=== PATIENT | male | born 1955 | race Caucasian/White ===

== ENCOUNTER 2017-04-09 18:39 | Emergency (ER) | payer OTHER ==
--- NOTE | 2017-04-09 19:14 | EDPHY ---
H & P Time Seen by Provider: 04/09/17 18:53 HPI/ROS: CHIEF COMPLAINT: Dizziness, shortness of breath HISTORY OF PRESENT ILLNESS: 61-year-old male presents to the emergency department with fever for the last 2 nights and feeling short of breath. He has pain with deep breathing. He denies any other chest pain. Denies abdominal pain. No nausea or vomiting. No neck or back pain. No ill contacts. No pain in or calf swelling. The patient was in [place] 3 weeks ago and returned approximately 3 weeks ago. His is not ill. He did just recently dry back from [place] 2 days ago. REVIEW OF SYSTEMS: Constitutional: Fevers, chills, night sweats Eyes: No double or blurry vision. ENT: No sore throat. Respiratory: Shortness of breath, pleuritic chest pain Cardiac: As above Gastrointestinal: No abdominal pain, vomiting or diarrhea. Genitourinary: No dysuria. Musculoskeletal: No neck or back pain. Skin: No rashes. Neurological: No headache. Past Medical/Surgical History: Negative Social History: Smoking Status: Never smoked Physical Exam: General Appearance: Alert, no distress. Temperature 37.4, 95% on room air. Heart rate 77. Eyes: Pupils equal and round. Extraocular motions are all intact. ENT: Mouth: Mucous membranes moist. Respiratory: No wheezing, rhonchi, or rales, lungs are clear to auscultation. Cardiovascular: Regular rate and rhythm. Gastrointestinal: Abdomen is soft and nontender, no masses, no rebound or guarding, bowel sounds normal. No CVA tenderness bilaterally. Neurological: Alert and oriented x 3, cranial nerves II through XII grossly intact Skin: Warm and dry, no rashes. Musculoskeletal: Nontender to palpate along the cervical, thoracic or lumbar spine. Neck is supple. Extremities: Full range of motion and no peripheral edema. Psychiatric: Patient is oriented X 3, there is no agitation. Constitutional: Initial Vital Signs Temperature (C) 37.4 C 04/09/17 18:43 Heart Rate 77 04/09/17 18:43 Respiratory Rate 14 04/09/17 18:43 Blood Pressure 129/64 H 04/09/17 18:43 O2 Sat (%) 95 04/09/17 18:43 O2 Delivery Mode Room Air Allergies/Adverse Reactions: No Known Allergies Allergy (Unverified 04/09/17 18:44) Home Medications: Medication Instructions Recorded oxyCODONE/APAP 5/325 [Percocet 1 - 2 tab PO Q4-6PRN PRN #10 tab 04/09/17 5/325] Medical Decision Making - Diagnostics Imaging Results: Imaging Impressions Chest X-Ray 04/09/17 18:54 Impression: ? Airways disease Chest/Thorax CTA 04/09/17 20:15 Impression: No evidence for pulmonary embolic disease. Results called and discussed with BRITTANY WILSON, at 04/09/2017 20:56. General information for patients regarding this examination can be found at [email or web address]. If you have questions or comments about this report, please contact me at (hospital) or [phone] (cell). Imaging: Discussed imaging studies w/ lamination technician Radiologist, I viewed and interpreted images myself ED Course/Re-evaluation: 61-year-old male presents to the emergency department with difficulty breathing , pain in his chest and feeling feverish and chilled. Laboratory studies reveal white blood cell count of 3000. His platelets are low. No previous laboratory studies to compare this to. Chemistries are unremarkable. His D-dimer however was high at 7. Troponin was negative. Initial chest x-ray was unremarkable. CT pulmonary angiogram was ordered given the elevated D-dimer and his pleuritic chest pain, this was normal. The case was discussed with Dr. Minh Montanez, secondary supervising physician, who did not see the patient in the emergency department but agrees with treatment and plan. A viral pathogen PCR is pending on this patient. He will call for the results tomorrow. I explained to the patient that he likely has a viral illness. Understands that he needs to have his CBC repeated with his primary care provider this week. The patient was given IV Toradol and IV Valium for pain. He was feeling a bit better. Still was feeling very restless. He was given take-home pack of Percocet and a prescription to take as needed to help him sleep. He was instructed to return to the emergency department if he felt short of breath, developed worsening chest pain, fever that did not come down with ibuprofen or Tylenol, or if he felt worse in any way. Differential Diagnosis: Shortness of breath including but not limited to pulmonary infectious process, COPD, asthma, pulmonary embolus and congestive heart failure. Chest pain including but not limited to myocardial ischemia, pulmonary embolus, chest wall pain, pleural inflammation and pulmonary infectious causes. - Data Points Laboratory Results: Laboratory Results 04/09/17 19:20 04/09/17 19:20 04/09/17 04/09/17 04/09/17 19:20 19:20 19:20 WBC RBC Hgb Hct MCV MCH MCHC RDW Plt Count MPV Neut % (Auto) Lymph % (Auto) [place] % (Auto) Eos % (Auto) Baso % (Auto) Nucleat RBC Rel Count Absolute Neuts (auto) Absolute Lymphs (auto) Absolute Monos (auto) Absolute Eos (auto) Absolute Basos (auto) Absolute Nucleated RBC Immature Gran % Seg Neutrophils % Band Neutrophils % Lymphocytes % Monocytes % Eosinophils % Basophils % Immature Gran # Absolute Seg Neuts Absolute Band Neuts Absolute Lymphocytes Absolute Monocytes Absolute Eosinophils Absolute Basophils RBC/WBC/PLT Morphology Atypical Lymphocytes Platelet Estimate D-Dimer 7.07 ug/mLFEU H ug/mLFEU (0.00-0.50) Sodium 133 mEq/L L mEq/L (134-144) Potassium 4.0 mEq/L mEq/L (3.5-5.2) Chloride 99 mEq/L mEq/L (97-110) Carbon Dioxide 27 mEq/l mEq/l (22-31) Anion Gap 7 mEq/L L mEq/L (8-16) BUN 9 mg/dL mg/dL (7-23) Creatinine 0.7 mg/dL mg/dL (0.7-1.3) Estimated GFR > 60 Glucose 110 mg/dL H mg/dL (70-100) Calcium 8.6 mg/dL mg/dL (8.5-10.4) Troponin I < 0.012 ng/mL ng/mL (0-0.034) 04/09/17 19:20 WBC 3.17 10^3/uL L 10^3/uL (3.80-9.50) RBC 4.44 10^6/uL 10^6/uL (4.40-6.38) Hgb 13.8 g/dL g/dL (13.7-17.5) Hct 40.1 % % (40.0-51.0) MCV 90.3 fL fL (81.5-99.8) MCH 31.1 pg pg (27.9-34.1) MCHC 34.4 g/dL g/dL (32.4-36.7) RDW 13.2 % % (11.5-15.2) Plt Count 114 10^3/uL L 10^3/uL (150-400) MPV 10.1 fL fL (8.7-11.7) Neut % (Auto) 68.4 % % (39.3-74.2) Lymph % (Auto) 21.5 % % (15.0-45.0) [place] % (Auto) 9.8 % % (4.5-13.0) Eos % (Auto) 0.0 % L % (0.6-7.6) Baso % (Auto) 0.3 % % (0.3-1.7) Nucleat RBC Rel Count 0.0 % % (0.0-0.2) Absolute Neuts (auto) 2.17 10^3/uL 10^3/uL (1.70-6.50) Absolute Lymphs (auto) 0.68 10^3/uL L 10^3/uL (1.00-3.00) Absolute Monos (auto) 0.31 10^3/uL 10^3/uL (0.30-0.80) Absolute Eos (auto) 0.00 10^3/uL L 10^3/uL (0.03-0.40) Absolute Basos (auto) 0.01 10^3/uL L 10^3/uL (0.02-0.10) Absolute Nucleated RBC 0.00 10^3/uL 10^3/uL (0-0.01) Immature Gran % 0.0 % % (0.0-1.1) Seg Neutrophils % 37 % % Band Neutrophils % 41 % % Lymphocytes % 15 % % Monocytes % 4 % % Eosinophils % 1 % % Basophils % 2 % % Immature Gran # 0.00 10^3/uL 10^3/uL (0.00-0.10) Absolute Seg Neuts 1.17 10^/uL L 10^/uL (1.70-6.50) Absolute Band Neuts 1.30 10^3/uL H 10^3/uL (0.00-0.70) Absolute Lymphocytes 0.48 10^3/uL L 10^3/uL (1.00-3.00) Absolute Monocytes 0.13 10^3/uL L 10^3/uL (0.30-0.80) Absolute Eosinophils 0.03 10^3/uL 10^3/uL (0.03-0.40) Absolute Basophils 0.06 10^3/uL 10^3/uL (0.02-0.10) RBC/WBC/PLT Morphology NORMAL (NORMAL) Atypical Lymphocytes 1+ H Platelet Estimate DECREASED L (ADEQ) D-Dimer Sodium Potassium Chloride Carbon Dioxide Anion Gap BUN Creatinine Estimated GFR Glucose Calcium Troponin I Medications Given: Discontinued Medications Diazepam (Valium Injection) 5 mg IVP EDNOW ONE Stop: 04/09/17 21:26 Last Admin: 04/09/17 21:34 Dose: 5 mg Sodium Chloride (Ns) 1,000 mls @ 0 mls/hr IV ONCE ONE PRN Reason: Wide Open Stop: 04/09/17 22:23 Last Admin: 04/09/17 22:34 Dose: 1,000 mls Sodium Chloride (Ns) 1,000 mls @ 0 mls/hr IV ONCE ONE PRN Reason: Wide Open Stop: 04/09/17 23:29 Last Admin: 04/09/17 19:10 Dose: 1,000 mls Ketorolac Tromethamine (Toradol) 15 mg IVP EDNOW ONE Stop: 04/09/17 22:15 Last Admin: 04/09/17 22:22 Dose: 15 mg Departure - Departure Disposition: Home, Routine, Self-Care Clinical Impression: Shortness of breath Chest pain Qualifiers: Chest pain type: chest pain on breathing Qualified Code(s): R07.1 - Chest pain on breathing Fever Qualifiers: Fever type: unspecified Qualified Code(s): R50.9 - Fever, unspecified Condition: Good Instructions: Dyspnea (ED), Fever in Adults (ED), Chest Pain (ED) Additional Instructions: Percocet for severe pain to help you sleep. Take this medication with food. You should not drive while taking this medication. Return to the emergency department if you feel worsening shortness of breath, chest pain, or if you feel worse in any way. Follow up with your primary care provider this week to have your blood work rechecked, specifically your complete blood cell count. Referrals: JORY BALLESTEROS [Other] - As per Instructions Prescriptions: oxyCODONE/APAP 5/325 [Percocet 5/325] 1 - 2 tab PO Q4-6PRN PRN #10 tab PRN Reason: For Moderate To Severe Pain
[2017-04-09 19:29] LABS: ADD DIFF? NO; ADD MORPH? NO; ADD SCAN? YES; FRAGMENT RBC FLAG 0 (0-99); HEMATOCRIT 40.1 % (40.0-51.0); HEMOGLOBIN 13.8 g/dL (13.7-17.5); LEFT SHIFT FLG 0 (0-99); LIPEMIA HEMOLYSIS FLAG 90 (0-99); MEAN CELL HEMOGLOBIN 31.1 pg (27.9-34.1); MEAN CELL HEMOGLOBIN CONCENTR. 34.4 g/dL (32.4-36.7); MEAN CELL VOLUME 90.3 fL (81.5-99.8); MEAN PLATELET VOLUME 10.1 fL (8.7-11.7); PLATELET CLUMPS FLAG 0 (0-99); PLATELET COUNT 114 10^3/uL (150-400); RED BLOOD CELL COUNT 4.44 10^6/uL (4.40-6.38); RED CELL DISTRIBUTION WIDTH 13.2 % (11.5-15.2)
[2017-04-09 19:30] LABS: ATYPICAL LYMPHOCYTE FLAG 200 (0-99)
[2017-04-09 19:42] LABS: ANION GAP 7 mEq/L (8-16); CALCIUM 8.6 mg/dL (8.5-10.4); CARBON DIOXIDE 27 mEq/l (22-31); CHLORIDE 99 mEq/L (97-110); CREATININE 0.7 mg/dL (0.7-1.3); GLOMERULAR FILTRATION RATE > 60; GLUCOSE 110 mg/dL (70-100); SODIUM 133 mEq/L (134-144)
[2017-04-09 19:51] LABS: SCAN POSITIVE
[2017-04-09 19:56] LABS: PLATELET ESTIMATE DECREASED (ADEQ)
[2017-04-09] MEDS ORDERED: IOPAMIDOL (ISOVUE 370) 100 ML BTL IV ONE (20:21)
[2017-04-09] MEDS ORDERED: DIAZEPAM 10 MG/2 ML SYR IVP ONE (21:25)
--- NOTE | 2017-04-09 21:34 | CPEKG ---
Heart Rate: 70 RR Interval: 857 P-R Interval: 172 QRSD Interval: 110 QT Interval: 368 QTC Interval: 398 P [place]: 74 QRS [place]: 86 T Wave [place]: 20 EKG Severity - ABNORMAL ECG - EKG Impression: SINUS RHYTHM EKG Impression: PROBABLE LEFT ATRIAL ABNORMALITY EKG Impression: INCOMPLETE RIGHT BUNDLE BRANCH BLOCK Electronically Signed By: Mark Mckay 09-Apr-2017 22:48:16
[2017-04-09 21:35] VITALS: RESP 16
[2017-04-09] MEDS ORDERED: KETOROLAC 30 MG/1 ML SDV IVP ONE (22:14)
[2017-04-09] MEDS ORDERED: NS 1,000 ML IV ONE ×2 (22:22→23:28)
[2017-04-09 23:34] VITALS: BP 121/60; PULSE 72; TEMP 99.7; O2SAT 94
[2017-04-09] MEDS ORDERED: OXYCODONE/APAP 5/325MG PREPACK#4 BTL TAKEHOME ONE ×2 (23:46→23:52)
== END 2017-04-09 23:58 | disposition home or self-care (01) ==
DX: R06.02 Shortness of breath (principal); R07.1 Chest pain on breathing; R50.9 Fever, unspecified
CPT/HCPCS: 96374; J1885; Q9967

== ENCOUNTER 2017-04-11 11:06 | Emergency (ER) | payer OTHER ==
[2017-04-11 12:24] VITALS: RESP 14
[2017-04-11] MEDS ORDERED: NS 1,000 ML IV ONE ×2 (12:53)
[2017-04-11] MEDS ORDERED: ONDANSETRON 4 MG/2 ML VIAL IVP ONE (12:53)
[2017-04-11] MEDS ORDERED: HYDROmorphONE/DILAUDID 1 MG/ML SYR IVP ONE (12:53)
[2017-04-11] MEDS ORDERED: KETOROLAC 30 MG/1 ML SDV IVP ONE (12:54)
--- NOTE | 2017-04-11 12:57 | EDPHY ---
H & P Time Seen by Provider: 04/11/17 12:37 HPI/ROS: CHIEF COMPLAINT: Can't sleep, and back pain HISTORY OF PRESENT ILLNESS: Patient was seen here 2 days ago with symptoms including pain on deep inspiration and feeling mildly short of breath. He had an extensive evaluation including CT angiography of his chest which was negative for pulmonary embolism or pulmonary infection. He was diagnosed with a viral infection and sent home. His white blood cell count was 3000 and his platelet count 114 which were both slightly low. Today presents with low back pain and a sensation that he just can't get comfortable. He is not sleeping for the last couple of days. The back pain is located in his lower lumbar area but isn't particularly positional. Not associated with weakness or numbness of legs. No trauma. No incontinence. REVIEW OF SYSTEMS: Eye: no change in vision ENT: no sore throat Cardiac: no chest pain or syncope Pulmonary: no cough or SOB Abdomen: No diarrhea or abdominal pain, did have vomiting yesterday. Decreased oral intake. Musculoskeletal: HPI, diffuse myalgias in addition. Skin: no rash Neuro: no headache, no weakness or numbness in extremities Constitutional: no fever : no urinary symptoms A comprehensive 10 point review of systems is otherwise negative aside from elements mentioned in the history of present illness. PAST MEDICAL HISTORY: negative Social history: No IV drugs, no recent travel or developing country. Recent travel to [place]. Dental work 2 weeks ago General Appearance: Alert and conversant, cooperative. Eyes: No scleral icterus. ENT, Mouth: Normal mucous membranes. Normal tympanic membranes. No facial swelling. Neck is supple. Respiratory: Normal respiratory effort, breath sounds equal, lungs are clear to auscultation. Cardiovascular: Regular rate and rhythm. No murmur. Gastrointestinal: Abdomen is soft and non tender. No McBurney's tenderness and negative Berg sign. Neurological: Alert and oriented x3. Normally conversant. Face symmetric, normal movement and sensation in all extremities. Toes downgoing bilaterally and no clonus. Negative straight leg raising bilaterally. Skin: Warm and dry, no rashes. No lesions seen on palms hands or fingernails. Musculoskeletal: No peripheral edema and no joint swelling. No midline spinal tenderness. Psychiatric: Not agitated. Emergency Department course/MDM: Vital signs reviewed and are unremarkable. I considered other causes such as including but not limited to diskitis, epidural abscess, pyelonephritis, influenza, malaria, endocarditis but I think these are all not likely. Plan for symptomatic treatment and recheck of labs including CBC. 1355: Repeat evaluation, labs discussed. CBC reviewed. White blood cell count stable, platelets slightly down from previous, hematocrit 36 today compared to 40 from previous. Think the most reasonable thing still is to treat the patient's symptoms, let him go home, and he has primary care follow- up later this week. Vital signs noted, afebrile and not tachycardic, normotensive. Smoking Status: Never smoked Constitutional: Initial Vital Signs Temperature (C) 37.3 C 04/11/17 11:09 Heart Rate 69 04/11/17 11:09 Respiratory Rate 18 04/11/17 11:09 Blood Pressure 123/60 H 04/11/17 11:09 O2 Sat (%) 95 04/11/17 11:09 O2 Delivery Mode Room Air Allergies/Adverse Reactions: No Known Allergies Allergy (Verified 04/11/17 11:08) Home Medications: Medication Instructions Recorded Ondansetron Odt [Zofran Odt] 4 mg PO Q4PRN #10 tab 04/11/17 Triazolam [Halcion 0.25MG (*)] 0.25 mg PO HS #5 tab 04/11/17 oxyCODONE/APAP 5/325 [Percocet] 1 - 2 tab PO Q4-6PRN PRN #11 tab 04/11/17 Medical Decision Making - Data Points Laboratory Results: Laboratory Results 04/11/17 12:05 04/11/17 12:05 Medications Given: Discontinued Medications Hydromorphone HCl (Dilaudid) 0.5 mg IVP EDNOW ONE Stop: 04/11/17 12:54 Last Admin: 04/11/17 13:27 Dose: 0.5 mg Sodium Chloride (Ns) 1,000 mls @ 0 mls/hr IV ONCE ONE; Wide Open PRN Reason: Protocol Stop: 04/11/17 12:54 Last Admin: 04/11/17 13:27 Dose: 1,000 mls Sodium Chloride (Ns) 1,000 mls @ 0 mls/hr IV ONCE ONE; Wide Open PRN Reason: Protocol Stop: 04/11/17 12:54 Last Admin: 04/11/17 13:28 Dose: 1,000 mls Ketorolac Tromethamine (Toradol) 15 mg IVP EDNOW ONE Stop: 04/11/17 12:55 Last Admin: 04/11/17 13:27 Dose: 15 mg Ondansetron HCl (Zofran) 4 mg IVP EDNOW ONE Stop: 04/11/17 12:54 Last Admin: 04/11/17 13:27 Dose: 4 mg Departure - Departure Disposition: Home, Routine, Self-Care Clinical Impression: Back pain Condition: Good Instructions: Acute Low Back Pain (ED) Additional Instructions: Do not mix the sleeping medication and Percocet. Do not take a sleeping pill within 6 hours of having taken 1 of your pain medications. Oral ibuprofen 600 mg every 6 hours for the next 3 days. Please return for repeat evaluation if your symptoms worsen. Referrals: JORY BALLESTEROS [Other] - As per Instructions Prescriptions: Ondansetron Odt [Zofran Odt] 4 mg PO Q4PRN #10 tab oxyCODONE/APAP 5/325 [Percocet] 1 - 2 tab PO Q4-6PRN PRN #11 tab PRN Reason: Pain Triazolam [Halcion 0.25MG (*)] 0.25 mg PO HS #5 tab
[2017-04-11 12:59] LABS: % IMMATURE GRANULYOCYTES 0.3 % (0.0-1.1); ABSOLUTE IMMATURE GRANULOCYTES 0.01 10^3/uL (0.00-0.10); ADD DIFF? NO; ADD MORPH? NO; ADD SCAN? YES; FRAGMENT RBC FLAG 0 (0-99); HEMATOCRIT 36.5 % (40.0-51.0); HEMOGLOBIN 12.9 g/dL (13.7-17.5); LEFT SHIFT FLG 10 (0-99); LIPEMIA HEMOLYSIS FLAG 90 (0-99); MEAN CELL HEMOGLOBIN 31.4 pg (27.9-34.1); MEAN CELL HEMOGLOBIN CONCENTR. 35.3 g/dL (32.4-36.7); MEAN CELL VOLUME 88.8 fL (81.5-99.8); MEAN PLATELET VOLUME 10.9 fL (8.7-11.7); PLATELET CLUMPS FLAG 10 (0-99); PLATELET COUNT 96 10^3/uL (150-400); RED BLOOD CELL COUNT 4.11 10^6/uL (4.40-6.38); RED CELL DISTRIBUTION WIDTH 13.2 % (11.5-15.2)
[2017-04-11 13:05] LABS: ATYPICAL LYMPHOCYTE FLAG 150 (0-99)
[2017-04-11 13:07] LABS: ANION GAP 8 mEq/L (8-16); CALCIUM 8.7 mg/dL (8.5-10.4); CARBON DIOXIDE 24 mEq/l (22-31); CHLORIDE 98 mEq/L (97-110); CREATININE 0.5 mg/dL (0.7-1.3); GLOMERULAR FILTRATION RATE > 60; GLUCOSE 118 mg/dL (70-100); POTASSIUM 3.7 mEq/L (3.5-5.2); SODIUM 130 mEq/L (134-144)
[2017-04-11 13:25] LABS: SCAN NEGATIVE
[2017-04-11 14:04] VITALS: BP 126/73; PULSE 66; TEMP 98.4; O2SAT 95
== END 2017-04-11 14:16 | disposition home or self-care (01) ==
DX: M54.5 Low back pain (principal)
CPT/HCPCS: 96374; J1170; J1885; J2405

== ENCOUNTER 2017-04-14 06:21 | Inpatient (IN) | payer OTHER ==
[2017-04-14] MEDS ORDERED: LORazepam 2 MG/ML INJ IVP ONE (06:48)
[2017-04-14] MEDS ORDERED: KETOROLAC 15 MG/1 ML SDV IVP ONE (06:50)
[2017-04-14] MEDS ORDERED: LORazepam 2 MG/ML INJ ONE (06:50)
--- NOTE | 2017-04-14 06:53 | EDPHY ---
H & P Stated Complaint: so much pain unable to sleep Source: Patient, Old records Exam Limitations: No limitations - Medical/Surgical History Hx Asthma: No Hx Chronic Respiratory Disease: No Hx Diabetes: No Hx Cardiac Disease: No Hx Renal Disease: No Hx Cirrhosis: No Hx Alcoholism: No Hx HIV/AIDS: No Hx Splenectomy or Spleen Trauma: No Other PMH: PMHx: none reported - Social History Smoking Status: Never smoked <Itzel Mckeon - Last Filed: 04/14/17 07:16> <Minh Montanez - Last Filed: 04/14/17 09:34> Time Seen by Provider: 04/14/17 06:28 HPI/ROS: HPI The patient presents with back pain, fever, new paresthesias. This is the patient's 3rd ER visit in the last 1 week. He had symptoms which began about a week ago with night sweats and generalized malaise. He had chest pain and myalgias which brought him to the ER for his 1st visit several days ago. He was evaluated for PE and MD with an unremarkable workup and discharged home. He re-presented 2 days ago with continued myalgias. His labs were relatively normal and he was discharged home. It was suspected that he had a viral syndrome. He was discharged on pain medication, however this is not helping his pain. He has not been able to sleep for the last 5 nights because when he lays down he has severe neck and lower back pain. This is achy in nature. This is associated with paresthesias of his upper extremities. He is only able to lay down for about 15 minutes at a time. Over the last 1 day he has noticed swelling of his upper extremities as well as a rash throughout his arms and chest. He has had daily fevers as high as 101 with his last fever being this morning. He has had diminished appetite. He has no known sick contacts. REVIEW OF SYSTEMS Constitutional: Positive for fever and chills Eyes: No discharge. ENT: No sore throat. Cardiovascular: No chest pain, no palpitations. Respiratory: No cough, no shortness of breath. Gastrointestinal: No abdominal pain, no vomiting. Genitourinary: No hematuria. Musculoskeletal: Positive for back pain. Skin: No rashes. Neurological: No headache. PMHx: Healthy Soc Hx: Recent airplane travel to [place] and [place] PHYSICAL General Appearance: Alert, no distress Eyes: Pupils equal and round no pallor or injection ENT, Mouth: Mucous membranes dry Back: Tenderness throughout mid lumbar spine and paraspinal regions bilaterally Respiratory: There are no retractions, lungs are clear to auscultation Cardiovascular: Regular rate and rhythm Gastrointestinal: Abdomen is soft and non-tender, no masses, bowel sounds normal Neurological: A&O, moves all extremities Skin: Warm and dry, maculopapular rash throughout upper extremities and trunk Musculoskeletal: Neck is supple, with tenderness of his left cervical paraspinals Extremities: symmetrical, full range of motion Psychiatric: Patient is oriented X 3, there is no agitation (Itzel Mckeon) Constitutional: Initial Vital Signs Temperature (C) 37.3 C 04/14/17 06:22 Heart Rate 74 04/14/17 06:22 Respiratory Rate 16 04/14/17 06:22 Blood Pressure 111/54 L 04/14/17 06:22 O2 Sat (%) 94 04/14/17 06:22 O2 Delivery Mode Room Air Allergies/Adverse Reactions: No Known Allergies Allergy (Verified 04/11/17 11:08) Home Medications: Medication Instructions Recorded Ondansetron Odt [Zofran Odt] 4 mg PO Q4PRN #10 tab 04/11/17 Triazolam [Halcion 0.25MG (*)] 0.25 mg PO HS #5 tab 04/11/17 oxyCODONE/APAP 5/325 [Percocet] 1 - 2 tab PO Q4-6PRN PRN #11 tab 04/11/17 Medical Decision Making <Itzel Mckeon - Last Filed: 04/14/17 07:16> - Diagnostics Imaging: Discussed imaging studies w/ scallop raker Radiologist, I viewed and interpreted images myself <Minh Montanez - Last Filed: 04/14/17 09:34> - Diagnostics Imaging Results: Imaging Impressions Abdomen Ultrasound 04/14/17 08:21 Impression: 1. Mild hepatomegaly, but normal echotexture without mass. 2. Sliver of free fluid adjacent to gallbladder, with normal sonographic appearance of the gallbladder. Findings and recommendations discussed with Minh Montanez MD at 0930 hour, 04/14/2017. Final report concurs with initial preliminary interpretation. Differential Diagnosis: This is a 61-year-old male who is healthy who presents with about 1 week of myalgias, fever, now with cervical and lumbar back pain causing insomnia and associated with upper extremity paresthesias and rash. He is being treated symptomatically for presumed viral infection. Differential diagnosis includes viral infection with myalgias, epidural abscess , myelitis, myositis, rhabdomyolysis, autoimmune disease. Plan for symptomatic relief with Ativan as Valium has helped him before, Toradol , IV fluids. I will check basic labs including a CK and will add on blood cultures. I will obtain an MRI of his spine given his back pain and this fever. At approximately 7:00 a.m., the case will be signed out to the oncoming provider Dr. Montanez. (Itzel Mckeon) Other Provider: 0700: I assumed care of this patient at shift change from Dr. Mckeon. This is a normally healthy 61 y/o male who arrives to the ED for the 3rd time this week complaining of myalgias and diffuse back pain. Dr. Mckeon ordered labs and full spinal MRI. We discussed the case and decided the patient will likely require admission due to continued uncontrolled symptoms. 0810: Labs show hyponatremia, hypochloremia, elevated LFTs, and elevated neutrophils, and anemia. Will add gallbladder US. Patient's MRI will take 3 hours, so we will admit him now and he can have imaging performed as an inpatient. 0840: Spoke with hospitalist service. Dr. Anderson accepts admission to step-down unit. 0932: US shows free fluid in abdomen. (Minh Montanez) - Data Points Laboratory Results: Laboratory Results 04/14/17 07:00 04/14/17 07:00 04/14/17 04/14/17 04/14/17 08:10 07:00 07:00 WBC 5.83 10^3/uL 10^3/uL (3.80-9.50) RBC 3.97 10^6/uL L 10^6/uL (4.40-6.38) Hgb 12.0 g/dL L g/dL (13.7-17.5) Hct 34.6 % L % (40.0-51.0) MCV 87.2 fL fL (81.5-99.8) MCH 30.2 pg pg (27.9-34.1) MCHC 34.7 g/dL g/dL (32.4-36.7) RDW 13.2 % % (11.5-15.2) Plt Count 147 10^3/uL L D 10^3/uL (150-400) MPV 9.8 fL fL (8.7-11.7) Neut % (Auto) 80.4 % H % (39.3-74.2) Lymph % (Auto) 12.3 % L % (15.0-45.0) [place] % (Auto) 6.7 % % (4.5-13.0) Eos % (Auto) 0.0 % L % (0.6-7.6) Baso % (Auto) 0.3 % % (0.3-1.7) Nucleat RBC Rel Count 0.0 % % (0.0-0.2) Absolute Neuts (auto) 4.68 10^3/uL 10^3/uL (1.70-6.50) Absolute Lymphs (auto) 0.72 10^3/uL L 10^3/uL (1.00-3.00) Absolute Monos (auto) 0.39 10^3/uL 10^3/uL (0.30-0.80) Absolute Eos (auto) 0.00 10^3/uL L 10^3/uL (0.03-0.40) Absolute Basos (auto) 0.02 10^3/uL 10^3/uL (0.02-0.10) Absolute Nucleated RBC 0.00 10^3/uL 10^3/uL (0-0.01) Immature Gran % 0.3 % % (0.0-1.1) Immature Gran # 0.02 10^3/uL 10^3/uL (0.00-0.10) ESR 9 MM/HR MM/HR (0-20) Sodium 127 mEq/L L mEq/L (134-144) Potassium 3.4 mEq/L L mEq/L (3.5-5.2) Chloride 94 mEq/L L mEq/L (97-110) Carbon Dioxide 23 mEq/l mEq/l (22-31) Anion Gap 10 mEq/L mEq/L (8-16) BUN 12 mg/dL mg/dL (7-23) Creatinine 0.6 mg/dL L mg/dL (0.7-1.3) Estimated GFR > 60 Glucose 108 mg/dL H mg/dL (70-100) Calcium 8.3 mg/dL L mg/dL (8.5-10.4) Total Bilirubin 0.9 mg/dL mg/dL (0.1-1.4) AST 101 IU/L H IU/L (17-59) ALT 136 IU/L H IU/L (21-72) Alkaline Phosphatase 168 IU/L H IU/L (38-126) Creatine Kinase 73 IU/L IU/L (0-224) Total Protein 5.6 g/dL L g/dL (6.3-8.2) Albumin 3.4 g/dL L g/dL (3.5-5.0) Urine Color YELLOW Urine Appearance HAZY Urine pH 6.0 (5.0-7.5) Ur Specific [place] 1.015 (1.002-1.030) Urine Protein 1+ H (NEGATIVE) Urine Ketones 1+ H (NEGATIVE) Urine Blood NEGATIVE (NEGATIVE) Urine Nitrate NEGATIVE (NEGATIVE) Urine Bilirubin NEGATIVE (NEGATIVE) Urine Urobilinogen NEGATIVE EU EU (0.2-1.0) Ur Leukocyte Esterase NEGATIVE (NEGATIVE) Urine RBC 3-5 /hpf H /hpf (0-3) Urine WBC 3-5 /hpf H /hpf (0-3) Ur Epithelial Cells NONE SEEN /lpf /lpf (NONE-1+) Urine Mucus TRACE /lpf /lpf (NONE-1+) Urine Glucose NEGATIVE (NEGATIVE) Medications Given: Discontinued Medications Ketorolac Tromethamine (Toradol) 15 mg IVP ONCE ONE Stop: 04/14/17 06:51 Last Admin: 04/14/17 07:10 Dose: 15 mg Lorazepam (Ativan Injection) 1 mg IVP EDNOW ONE Stop: 04/14/17 06:49 Last Admin: 04/14/17 07:07 Dose: 1 mg Departure <Itzel Mckeon - Last Filed: 04/14/17 07:16> <Minh Montanez - Last Filed: 04/14/17 09:34> - Departure Disposition: [facility] Clinical Impression: Myalgia, Hyponatremia, Hypochloremia, Elevated liver enzymes, Rash Anemia Qualifiers: Anemia type: other cause Other causes of anemia: other cause, not classified Qualified Code(s): D64.89 - Other specified anemias Condition: Fair Report Scribed for: Minh Montanez Report Scribed by: Sharri Phillips Date of Report: 04/14/17 Time of Report: 08:23 <Minh Montanez - Last Filed: 04/14/17 09:34>
[2017-04-14 07:09] LABS: % IMMATURE GRANULYOCYTES 0.3 % (0.0-1.1); ABSOLUTE IMMATURE GRANULOCYTES 0.02 10^3/uL (0.00-0.10); ADD DIFF? NO; ADD MORPH? NO; ADD SCAN? NO; ATYPICAL LYMPHOCYTE FLAG 30 (0-99); FRAGMENT RBC FLAG 0 (0-99); HEMATOCRIT 34.6 % (40.0-51.0); LEFT SHIFT FLG 0 (0-99); LIPEMIA HEMOLYSIS FLAG 90 (0-99); MEAN CELL HEMOGLOBIN 30.2 pg (27.9-34.1); MEAN CELL HEMOGLOBIN CONCENTR. 34.7 g/dL (32.4-36.7); MEAN CELL VOLUME 87.2 fL (81.5-99.8); MEAN PLATELET VOLUME 9.8 fL (8.7-11.7); PLATELET CLUMPS FLAG 0 (0-99); PLATELET COUNT 147 10^3/uL (150-400); RED BLOOD CELL COUNT 3.97 10^6/uL (4.40-6.38); RED CELL DISTRIBUTION WIDTH 13.2 % (11.5-15.2)
[2017-04-14 07:20] LABS: ALANINE AMINOTRANSFERASE 136 IU/L (21-72); ALBUMIN 3.4 g/dL (3.5-5.0); ALKALINE PHOSPHATASE 168 IU/L (38-126); ANION GAP 10 mEq/L (8-16); ASPARTATE AMINOTRANSFERASE 101 IU/L (17-59); BILIRUBIN,TOTAL 0.9 mg/dL (0.1-1.4); CALCIUM 8.3 mg/dL (8.5-10.4); CARBON DIOXIDE 23 mEq/l (22-31); CHLORIDE 94 mEq/L (97-110); CREATININE 0.6 mg/dL (0.7-1.3); GLOMERULAR FILTRATION RATE > 60; GLUCOSE 108 mg/dL (70-100); POTASSIUM 3.4 mEq/L (3.5-5.2); SODIUM 127 mEq/L (134-144); TOTAL PROTEIN 5.6 g/dL (6.3-8.2)
[2017-04-14 07:29] LABS: SEDIMENTATION RATE 9 MM/HR (0-20)
[2017-04-14 08:19] LABS: COLOR YELLOW; LEUKOCYTE ESTERASE,URINE NEGATIVE (NEGATIVE); NITRITE,URINE NEGATIVE (NEGATIVE)
[2017-04-14 08:25] LABS: MUCUS TRACE /lpf (NONE-1+)
[2017-04-14] MEDS ORDERED: LORazepam 2 MG/ML INJ IVP PRN (12:34)
[2017-04-14] MEDS ORDERED: ZOLPIDEM TARTRATE 5 MG TAB PO PRN (13:25)
[2017-04-14] MEDS ORDERED: ONDANSETRON DISINTEGRATING 4 MG TAB PO PRN (13:25)
--- NOTE | 2017-04-14 15:31 | GHP ---
[f rep st] HISTORY AND PHYSICAL DATE OF ADMISSION: 04/14/2017 The patient is a pleasant 61-year-old gentleman with minimal past medical history who has presented to the emergency department the last 3 nights with back pain. He does have a history of what sounds like cervical lumbar spine disease, but he has had worsening back pain. He has not had any bowel o r bladder incontinence. He has never had back surgery. He does not have focal lower extremity weak ness, although he describes his legs bilaterally as slightly weak. He recently traveled to [place], it sounds like a trip where they traveled and slept in some places with uncomfortable beds and he escamilla d some uncomfortable nights sleeping on the floor. He does not use injection drugs. He has had wha t sounds like a couple episodes of drenching night sweats in the last week precluding him from sleep but it is not clear that he has had documented fevers. He has been here on the 4th, the 6th, and n ow and he has had low-grade temps of 37.9, 37.6. While here he has had no true fevers. His workup thus far included a chest x-ray on the which was unremarkable. He was diagnosed with a viral syndrome. He had a CTA of his chest done on the concerning for pulmonary embolism show ing evidence of pulmonary embolic disease, a mild T8 compression. Today, he was seen and he had an abdominal ultrasound in response to some abnormal LFTs, which was pretty unremarkable. He drinks it sounds like daily alcohol but not to excess. He still has his gallbladder. He has not been taking a lot of Tylenol, though he is prescribed Percocet, and in discussing with him, it sounds as there was some confusion as to whether Tylenol and Aleve were the same thing. He has had no rash on his s kin, no pain elsewhere. He has never had a history of elevated liver tests in the past. He present ed to the emergency department today just in misery with pain, unable to sleep. He also had some pa resthesias in his upper extremities and some neck pain. He has not had focal weakness in his arms. It sounds like he documents fevers of 101 at home. REVIEW OF SYSTEMS: Complete 10-point review of systems conducted and negative except as noted in th e HPI. PAST MEDICAL HISTORY: It sounds like degenerative disease of the spine. ALLERGIES: No known drug allergies. HOME MEDICATIONS: Percocet, Halcion, ondansetron. SOCIAL HISTORY: He lives in [place]. 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 Alcohol a s in the HPI. No tobacco. No injection drugs. FAMILY HISTORY: Notable for hypertension. PHYSICAL EXAM: VITAL SIGNS: Temp, presenting vitals this morning, temp 37.3, blood pressure 111/54 , pulse 74, breathing 16 times a minute, 94% on room air. GENERAL: No acute distress. HEENT: Scl erae anicteric. Oropharynx clear. Mucous membranes are moist. NECK: Supple without lymphadenopat hy or JVD. LUNGS: Clear to auscultation bilaterally. HEART: S1, S2. Not tachycardic. ABDOMEN: Soft, nontender, nondistended. LOWER EXTREMITIES: Without edema. Calves nontender. SKIN: Witho ut rash. SPINE: His lumbar spine, he has no pain over palpation. There is no obvious muscle spasm . NEURO: Shows upper extremity and lower extremity strength 5/5 bilaterally with intact sensation 5/5 bilaterally. LABS: Sodium 127, potassium 3.4, chloride 94, bicarb 23, BUN 12, creatinine 0.6, glucose 108, AST 1 01, ALT 136, alkaline phosphatase 168, no priors for comparison. Albumin low at 3.4. Troponin less than 0.012 a couple days ago. His D-dimer a couple days ago was 7. His white count 5.8, hematocri t 34, platelets are 147,000. UA is unremarkable. Abdominal ultrasound shows mild hepatomegaly with normal texture without mass. Sliver free fluid adjacent to the gallbladder with normal sonographic appearance of the gallbladder. I have discussed the case with Dr. Itzel Mckeon. ASSESSMENT AND PLAN: This is a 61-year-old gentleman who presents with low back pain. 1. Low back pain. The story is somewhat suggestive of an epidural abscess with the fevers and the pain. He has a relatively unremarkable exam and looks pretty well, not tachycardic and no fevers. Blood cultures have been drawn. He has an MRI of his cervical, thoracic and lumbar spine ordered. I will follow up on these results. There is no focal neurologic deficit, so I do not suspect signif icant herniated disk or other neuro surgical emergency. I will wait to see if there is evidence of paraspinal fluid collection. 2. Pain. We will give him IV Dilaudid, some IV Ativan now, particularly prior to his MRI. 3. Hyponatremia. I suspect this is secondary to pain and possibly poor p.o. intake. We will follo w. 4. Elevated liver function tests, uncertain etiology. It does not fit a pattern for alcoholic. Se nt a Tylenol level that is pending at this time. We will follow these while here. 5. Prophylaxis. Pharmacologic prophylaxis indicated if in the hospital longer than 24 hours. I escamilla ve written him for enoxaparin to start tomorrow. Obviously this can be held if there is concern if he has a surgical process on this MRI. 6. Alcohol use. It is not clear to me if this is playing a role on his current presentation. 7. Disposition: Inpatient status. /[id number]/MODL
[2017-04-14] MEDS ORDERED: GADOBUTROL 10 ML VIAL IVP ONE (16:43)
[2017-04-14] MEDS: oxyCODONE IR 5 MG TAB PO PRN ×2 (16:56→23:32)
[2017-04-14] MEDS: HYDROmorphONE/DILAUDID 1 MG/ML SYR IVP PRN (18:00)
[2017-04-14] MEDS: TRIAZOLAM 0.25 MG TAB PO SCH (20:57)
[2017-04-15] MEDS ORDERED: PROTOCOL POTASSIUM 1 DOSE MISC PRN (00:57)
[2017-04-15] MEDS ORDERED: PROTOCOL MAGNESIUM 1 DOSE IV PRN (00:57)
[2017-04-15] MEDS ORDERED: NS 1,000 ML IV SCH (01:00)
[2017-04-15] MEDS: oxyCODONE IR 5 MG TAB PO PRN ×3 (03:31→20:54)
[2017-04-15 04:12] LABS: % IMMATURE GRANULYOCYTES 0.5 % (0.0-1.1); ABSOLUTE IMMATURE GRANULOCYTES 0.03 10^3/uL (0.00-0.10); ADD DIFF? NO; ADD MORPH? NO; ADD SCAN? NO; ATYPICAL LYMPHOCYTE FLAG 30 (0-99); FRAGMENT RBC FLAG 0 (0-99); HEMATOCRIT 34.6 % (40.0-51.0); HEMOGLOBIN 12.1 g/dL (13.7-17.5); LEFT SHIFT FLG 0 (0-99); LIPEMIA HEMOLYSIS FLAG 90 (0-99); MEAN CELL HEMOGLOBIN 30.3 pg (27.9-34.1); MEAN CELL VOLUME 86.7 fL (81.5-99.8); PLATELET CLUMPS FLAG 0 (0-99); PLATELET COUNT 189 10^3/uL (150-400); RED BLOOD CELL COUNT 3.99 10^6/uL (4.40-6.38); RED CELL DISTRIBUTION WIDTH 13.2 % (11.5-15.2)
[2017-04-15 04:33] LABS: ALANINE AMINOTRANSFERASE 117 IU/L (21-72); ALKALINE PHOSPHATASE 148 IU/L (38-126); ANION GAP 10 mEq/L (8-16); ASPARTATE AMINOTRANSFERASE 66 IU/L (17-59); BILIRUBIN,TOTAL 0.6 mg/dL (0.1-1.4); CALCIUM 8.1 mg/dL (8.5-10.4); CARBON DIOXIDE 22 mEq/l (22-31); CHLORIDE 94 mEq/L (97-110); CREATININE 0.6 mg/dL (0.7-1.3); GLOMERULAR FILTRATION RATE > 60; GLUCOSE 89 mg/dL (70-100); POTASSIUM 3.8 mEq/L (3.5-5.2); SODIUM 126 mEq/L (134-144); TOTAL PROTEIN 5.3 g/dL (6.3-8.2)
[2017-04-15 04:48] LABS: INR 1.12 (0.83-1.16); PROTIME(PATIENT) 14.3 SEC (12.0-15.0)
[2017-04-15 04:49] LABS: APTT 30.2 SEC (23.0-38.0)
--- NOTE | 2017-04-15 06:04 | CPEKG ---
Heart Rate: 72 RR Interval: 833 QRSD Interval: 108 QT Interval: 376 QTC Interval: 412 QRS [place]: 61 T Wave [place]: -56 EKG Severity - ABNORMAL ECG - EKG Impression: ACCELERATED JUNCTIONAL RHYTHM EKG Impression: IRBBB AND LPFB EKG Impression: ST DEPRESSION, CONSIDER ISCHEMIA, INF LEADS Electronically Signed By: Itzel Mckeon 15-Apr-2017 07:08:58
[2017-04-15] MEDS ORDERED: POTASSIUM CL 10 MEQ TAB PO ONE ×2 (09:42→21:19)
[2017-04-15] MEDS: ENOXAPARIN 40 MG/0.4 ML SYR SC SCH (09:46)
[2017-04-15] MEDS ORDERED: IMMUNE GLOBULIN 20 GM/200 ML VIAL IV SCH ×3 (11:15→13:30)
--- NOTE | 2017-04-15 11:22 | HOSPPROG ---
Hospitalist Progress Note Assessment/Plan: 61-year-old healthy man is admitted with fever, rash and increasing back pain. Overnight he has developed numbness in his hands and legs as well as a little bit the lung numbness over his chest area. He was admitted with severe back pain for pain control. Evaluation has included MRIs of his cervical, thoracic and lumbar spine all of which were fairly unremarkable. # Viral syndrome with fever rash in back pain. Having some intermittent neurologic complaints, I did discuss this case with Dr. Torres who saw him in consultation is concern for possible Guillain-Haines syndrome. Get an LP and depending on results could consider IVIG. * Id consult, discussed with Dr. Blas, check viral serologies. * LP * continue supportive care * possible IVIG depending on LP results # Junctional rhythm: Patient verify junctional rhythm overnight. Asymptomatic. Currently in sinus rhythm will continue to monitor. Subjective: having some numbness on his hands and legs. Still with back pain but better controlled with pain medication. Objective: Vital Signs Temp Pulse Resp BP Pulse Ox 37.1 C 73 17 117/84 H 90 L 04/15/17 08:00 04/15/17 08:00 04/15/17 08:00 04/15/17 08:00 04/15/17 08:30 Laboratory Results 04/15/17 03:30 04/15/17 03:30 04/14/17 04/15/17 04/16/17 05:59 05:59 05:59 Intake Total 1180 Balance 1180 PT 14.3 SEC (12.0-15.0) 04/15/17 03:30 INR 1.12 (0.83-1.16) 04/15/17 03:30 - Physical Exam Constitutional: uncomfortable Eyes: PERRL, anicteric sclera, EOMI Ears, Nose, Mouth, Throat: moist mucous membranes Cardiovascular: regular rate and rhythym, no murmur, rub, or gallop Respiratory: no respiratory distress, no rales or rhonchi, clear to auscultation Gastrointestinal: normoactive bowel sounds, soft, non-tender abdomen, no palpable masses Genitourinary: no bladder fullness Skin: warm, normal color Musculoskeletal: no joint effusions, generalized weakness, No asymmetric calves Neurologic: AAOx3, No sensation intact bilaterally Psychiatric: interacting appropriately, not anxious, not encephalopathic ICD10 Worksheet Patient Problems: Problems Problem Status Onset Myalgia Acute Hyponatremia Acute Anemia Acute Hypochloremia Acute Elevated liver enzymes Acute Rash Acute
--- NOTE | 2017-04-15 11:42 | GCON ---
[f rep st] CONSULTATION REFERRING PHYSICIAN: Ynes Kraft MD HISTORY: The patient is a 61-year-old gentleman, who I am asked to see in neurologic consultation r egarding prominent pain with paresthesias in the extremities and some weakness. History is obtained from review of the medical records, discussion with his providers, and direct history from the apurva ent and his significant other, who has witnessed all of these activities over the last week. Sympto ms began about 8 days ago, when he was not feeling very well on a trip. About a month ago or so, cindy nair were in [place], but did not have any illness. He was in a hotel, and said he started having chil ls during the night. He was having sweats and that is very unusual for him. After coming home, he was not feeling well, and within the next few days, he went to the emergency room for a visit, this was on April 09. At that time, he was suspected to probably have a viral syndrome. He came back to the emergency room on April 11, and at that point was reporting pain on deep inspiration, and feeli ng mildly short of breath. He had already had workup with CT angiogram of the chest, it was negativ e. His low back pain was causing prominent discomfort and he was having some paresthesias beginning to develop. It was hard to correlate with any particular position, but he simply could not get sonido y comfortable. He was afebrile in the emergency department at that point. Labs were not particular ly specific. He was sent home with pain medication to include Percocet and antinausea medicine with Zofran. He said that he simply has continued to have a decline in his comfort and more back pain, with pares thesias developing initially in the right hand, and then spreading within a day or so to affect both hands, and now the feet are affected, and he is feeling some discoordination, and a little unsteady , and definitely a little weak in general. He came back to the emergency department early yesterday morning, and had more workup with entire spinal cord exam showing no severe abnormalities to explai n symptoms. The most recent labs are showing mild anemia, normal white count, normal platelets, sed imentation rate of 9. He said he has noticed a little bit of a rash on the skin. D-dimer mildly el evated. Normal INR. Chemistries have shown some elevated liver enzymes, which are coming down sinc e yesterday morning, when they were about 2 times to 3 times normal, and now are about 1-1/2 times n ormal or so. Lipase of 730. He does say that he probably drinks alcohol 5 days a week, with 3 beer s, or sometimes a few more per day, and sometimes some other alcohol. Urinalysis showed a few white cells, but very nonspecific. Tox screen showed normal Tylenol level. PAST MEDICAL HISTORY: Has been relatively unremarkable, except for known degenerative spine disease and intermittent back pain. ALLERGIES: No allergies. SOCIAL HISTORY: He lives in [place]. 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 The alcohol use is as outlined above. He is a nonsmoker. No drug abuse. FAMILY HISTORY: Hypertension. MEDICATIONS: When he came to the hospital, he was taking some Halcion, ondansetron and Percocet. D uring this hospitalization, he is on Lovenox for DVT prophylaxis. He is getting pain medication as needed, and that is including some Dilaudid. PHYSICAL EXAMINATION: VITAL SIGNS: The patient had a T-max at midnight of 38.9, temperature curren tly 37.1 Celsius, blood pressure 117/84, pulse of 73, respirations 17. GENERAL: He is well develop ed, in no acute distress. EYES: Clear. NECK: Supple with no bruits or masses. CARDIAC: Regular rate and rhythm. No murmur. NEURO: He is lethargic and falling asleep, sometimes as I am speaking to him, consistent with purely being exhausted. The pupils are 3 mm and reactive. Extraocular mov ements are intact. Normal facial sensation and strength. Motor exam, normal muscle bulk and tone, but he has mild proximal muscle weakness in the upper and lower extremities, in the 4/5 range. Refl exes are 1+ in the upper extremities and absent in the lower extremities, except for slight reflex o f the right ankle jerk. No Babinski signs. The sensation is fairly well preserved for temperature and light touch, despite having the paresthesias. I did not have him try to walk, but apparently ea rlier he did walk and nearly collapsed from feeling very weak and somewhat lightheaded. 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 Guillain-Saint Paul syndrome can certainly have very promine nt back pain, as he does, and areflexia in the lower extremities, certainly points toward this condi tion, as the most likely explanation. We talked about this and evaluate, obtaining spinal fluid, wh ich we will do to look for any classic pattern of the condition or anything unexpected. Typically, we would see a high-protein with relatively normal white blood cell count. If there are elevated wh ite blood cells, that can occur early that would not exclude the diagnosis, but might prompt us to d o more extensive diagnostic studies. The likelihood of a West Nile virus is relatively unlikely, bu t reasonable to consider. He already had flu testing, which was negative. Depending on his clinica l course, I am still thinking we would probably treat him with IVIG, if the spinal fluid is not clas sic for that condition, just because he is still showing some progression. In any case, we did talk about that and the plan, typically for 5 consecutive days of treatment. Depending on his clinical course, some of this might be able to be arranged for outpatient home care infusions. Total unit time today, 60 minutes, with greater than 50% of the time counseling and coordination of care. I have reviewed the case with Dr. Alan Blas as well, from infectious disease. We will continue to monitor his progress and follow up on CSF results. /[id number]/MODL
--- NOTE | 2017-04-15 12:49 | GCON ---
[f rep st] CONSULTATION INFECTIOUS DISEASE CONSULTATION DATE OF CONSULTATION: 04/15/[address] Ynes Kraft. REASON FOR CONSULTATION: Probable viral syndrome with neurologic symptoms. HISTORY OF PRESENT ILLNESS: The patient is a 61-year-old male without a significant past medical hi story, who I am asked to see in consultation for probable viral syndrome with neurologic symptoms. The patient recently traveled in [place] for approximately 6 weeks, where he was in [place], [facility], [place], [place], and [place]. He does not note any unusual occurrences while traveling. He returned home approximately 1 month ago. Approximately 1 week prior to admission, he developed t he onset of night sweats. This was followed by fever with chills and low back pain. He also has escamilla d more chronic neck pain, which was worsened as well. He did not note any headache or visual change s. The patient was seen in the emergency department on 04/09/2017 for the above complaints. He did have associated chest discomfort at that time, and a CT angiogram was performed which did not show evidence of pulmonary embolus. No pneumonia was noted either. The patient was treated supportively for probable viral syndrome. His CBC on that day did show a mild leukopenia and thrombocytopenia, with the associated presence of atypical lymphocytes. The patient returned home and had difficulty sleeping due to his low back pain. He subsequently re-presented to the ER on 04/11/2017 for repeat evaluation. He was not at that time noted to have weakness or numbness in his extremities. Repeat CBC showed persistent mild leukopenia and thrombocytopenia. He was discharged with supportive thera py, including pain medications, anti-emetics, and medical therapy for insomnia, with plans for outpa tient followup. Ultimately, his symptoms persisted, including fever and chills, and he started to h ave a sense of numbness and tingling in his upper extremities and chest. This was not associated wi th a sense of overall weakness. He has noted some cognitive slowing. No bizarre behaviors or seizu res noted by his family. He continued to have difficulty with sleep and low back pain, and ultimate ly was admitted yesterday for further evaluation. Lab assessment showed improvement in his white bl ood cell count and platelet count. He was noted to have transaminitis. Abdominal ultrasound was pe rformed and showed mild hepatomegaly. He underwent an MRI of the cervical, thoracic, and lumbar spi ne with no evidence of epidural abscess, diskitis, or osteomyelitis. Mild disk bulge at T3-4 was no joseline. The patient has had a respiratory viral panel performed on 04/09/2017 which showed no organism s. He does not note any tick exposure when in [place] or locally. He has been walking in [place] around [facility], but did not note any mosquito bites. He lives on approximately 1 acre that a buts some hobby-type farms. He occasionally pets the horses across the fence. There is a pet cat a nd dog at home. The cat is an indoor/outdoor cat which has not been noted to have fleas or ticks. It has not brought home any animals such as rabbits or squirrels. He has been doing some yard work, but no mowing. He also has noted a diffuse, slightly macular rash over the last few days. No bat exposure. No ill contacts. The patient does not recall any raw meat or unpasteurized dairy pr oducts while in [place]. He did eat escargot. Given the above findings, I am now asked to assist in his ongoing management. PAST MEDICAL HISTORY: Unremarkable. PAST SURGICAL HISTORY: Appendectomy. MEDICATIONS: Prior to admission: Pain control and anti-emetics. Current medications include Lovenox 40 mg subcu daily, Ativan as needed, and Halcion 0.25 mg p.o. at bedtime. ALLERGIES: No known drug allergies. SOCIAL HISTORY: The patient does not smoke. He drinks 4 beers 5 times per week. Marijuana use. N o other drug use. Travel history as outlined above. FAMILY HISTORY: Hypertension. REVIEW OF SYSTEMS: Outside that noted in the HPI, the remainder of a 10-system review is unremarkab le. PHYSICAL EXAMINATION: VITAL SIGNS: Temperature 38.9, temperature current 37.1, heart rate 73, resp iratory rate 17, blood pressure 117/84, oxygen saturation 98% on room air. GENERAL: The patient is a periodically somnolent, but easily arousable. He appears nontoxic. HEENT: There is no scleral icterus, conjunctival injection, or conjunctival petechiae. Oropharynx is clear, without lesions. Dentition is in good repair. There is no thrush. There is no tenderness over the frontal, maxillar y, or mastoid area. NECK: Supple, without lymphadenopathy or palpable thyromegaly. Subtle meningi smus may be present. CHEST: Clear to auscultation bilaterally, without adventitious sounds. Respi ratory effort is normal. CARDIOVASCULAR: Regular rate and rhythm, without murmurs, gallops, or rub s. ABDOMEN: Soft, nontender, nondistended. There is no palpable organomegaly. Bowel sounds are p resent. MUSCULOSKELETAL: There is no cyanosis, clubbing, or edema. SKIN: There is a resolving fa int macular rash over the upper extremities primarily. There are no stigmata of endocarditis. The skin is warm and dry to touch. LYMPHATICS: There are no cervical or supraclavicular nodes. NEUROL OGIC: The patient is a periodically somnolent, but easily arousable and able to interact normally. Cranial nerves 2-12 are grossly intact. Slight dysmetria with [id number] testing. Decreased s ensation subjectively in the upper extremities. Motor strength is 5/5. Prior examinations have not ed no reflexes in the lower extremities. LABORATORY DATA: White blood cell count 6.4, hematocrit 34.6, platelets 189, neutrophils 74%. Seru m creatinine 0.6, AST 66, ALT 117, alkaline phosphatase 148, bilirubin 0.6, lipase 730. CK 73. INR 1.1. Urinalysis with 3-5 red blood cells and 3-5 white blood cells, with 1+ protein and 1+ ketones . Blood cultures x2 sets are negative. Respiratory pathogen panel is negative. MRI as outlined ab ove. IMPRESSION: Probable viral syndrome, with neurologic complaints suggestive of possible Guillain-Bar re syndrome: Initial leukopenia and atypical lymphocytosis consistent with viral etiology. Conside rations would include West Nile virus, Narciso-Caceres virus, cytomegalovirus, enterovirus, or less lik jody VZV/HSV (rash not consistent with either). Influenza is also a consideration, but the respirato ry pathogen PCR makes this less likely and no ongoing respiratory symptoms. Tick-borne illnesses ar e of consideration, although I suspect these are unlikely based on description of travel while in [facility] and should not be associated with atypical lymphocytosis. Similarly, suspect zoonotic illness such as tularemia or Q fever would be remote considerations, but again I feel those will be less lik jody. RECOMMENDATIONS: 1. EBV, CMV, HIV, and West Nile virus antibodies. 2. West Nile virus PCR in serum. 3. Agree with plans for lumbar puncture, with further diagnostic testing based on CSF findings (con siderations would be for enterovirus PCR, VZV PCR, HSV PCR, and West Nile virus antibody/PCR). 4. Observe off antibiotics. 5. Continued supportive care. 6. Above findings and plan were discussed with the patient, family, Dr. Kraft, and Dr. Torres. Thank you for this consultation. We will continue to follow the patient with you. /[id number]/MODL
[2017-04-15] MEDS ORDERED: IMMUNE GLOBULIN 10 GM/100 ML VIAL IV SCH (13:30)
[2017-04-15] MEDS: SODIUM CHLORIDE 1,000 MG TAB PO SCH ×2 (13:36→18:38)
[2017-04-15] MEDS ORDERED: LIDOCAINE 1% 300 MG/30 ML SDV ONE (15:46)
[2017-04-15 18:31] LABS: PROTEIN, CSF 100 mg/dL (12-60)
[2017-04-15 18:50] LABS: CSF APPEARANCE CLEAR (CLEAR); CSF COLOR COLORLESS (COLORLESS); CSF SUPERNATANT COLORLESS (COLORLESS); WBC, CSF 33 /mm3 (0-5)
[2017-04-15 19:12] LABS: POTASSIUM 3.9 mEq/L (3.5-5.2)
[2017-04-15] MEDS: TRIAZOLAM 0.25 MG TAB PO SCH (20:54)
--- NOTE | 2017-04-15 20:57 | NEUROPROG ---
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 I spoke with the patient and his nurse and will initiate IVIg 30gms daily for 5 consecutive days. Objective: Vital Signs Temp Pulse Resp BP Pulse Ox 37.6 C 76 12 107/59 L 96 04/15/17 15:40 04/15/17 15:40 04/15/17 15:40 04/15/17 15:40 04/15/17 15:40 Microbiology 04/15/17 18:06 Gram Stain - Final Cerebral Spinal Fluid Laboratory Results 04/15/17 03:30 04/15/17 18:40 04/14/17 04/15/17 04/16/17 05:59 05:59 05:59 Intake Total 1180 2582 Balance 1180 2582 PT 14.3 SEC (12.0-15.0) 04/15/17 03:30 INR 1.12 (0.83-1.16) 04/15/17 03:30 Allergies/Adverse Reactions: No Known Allergies Allergy (Verified 04/11/17 11:08)
[2017-04-15] MEDS: HYDROmorphONE/DILAUDID 1 MG/ML SYR IVP PRN (23:03)
[2017-04-16] MEDS ORDERED: ACETAMINOPHEN 325 MG TAB PO PRN (01:08)
[2017-04-16] MEDS: ONDANSETRON 4 MG/2 ML VIAL IVP PRN (03:22)
[2017-04-16 05:09] LABS: % IMMATURE GRANULYOCYTES 0.5 % (0.0-1.1); ABSOLUTE IMMATURE GRANULOCYTES 0.03 10^3/uL (0.00-0.10); ADD DIFF? NO; ADD MORPH? NO; ADD SCAN? NO; ATYPICAL LYMPHOCYTE FLAG 50 (0-99); FRAGMENT RBC FLAG 0 (0-99); HEMOGLOBIN 13.6 g/dL (13.7-17.5); LEFT SHIFT FLG 0 (0-99); LIPEMIA HEMOLYSIS FLAG 90 (0-99); MEAN CELL HEMOGLOBIN 30.2 pg (27.9-34.1); MEAN CELL HEMOGLOBIN CONCENTR. 34.9 g/dL (32.4-36.7); MEAN CELL VOLUME 86.7 fL (81.5-99.8); MEAN PLATELET VOLUME 9.7 fL (8.7-11.7); PLATELET CLUMPS FLAG 10 (0-99); PLATELET COUNT 283 10^3/uL (150-400); RED CELL DISTRIBUTION WIDTH 13.2 % (11.5-15.2)
[2017-04-16 05:23] LABS: ALANINE AMINOTRANSFERASE 108 IU/L (21-72); ALBUMIN 3.3 g/dL (3.5-5.0); ALKALINE PHOSPHATASE 142 IU/L (38-126); ANION GAP 8 mEq/L (8-16); ASPARTATE AMINOTRANSFERASE 50 IU/L (17-59); BILIRUBIN,TOTAL 0.8 mg/dL (0.1-1.4); CALCIUM 8.6 mg/dL (8.5-10.4); CARBON DIOXIDE 23 mEq/l (22-31); CHLORIDE 91 mEq/L (97-110); CREATININE 0.7 mg/dL (0.7-1.3); GLOMERULAR FILTRATION RATE > 60; GLUCOSE 101 mg/dL (70-100); POTASSIUM 4.2 mEq/L (3.5-5.2); SODIUM 122 mEq/L (134-144); TOTAL PROTEIN 6.3 g/dL (6.3-8.2)
[2017-04-16] MEDS: oxyCODONE IR 5 MG TAB PO PRN ×2 (07:21→17:26)
[2017-04-16] MEDS: ENOXAPARIN 40 MG/0.4 ML SYR SC SCH (10:02)
[2017-04-16] MEDS: SODIUM CHLORIDE 1,000 MG TAB PO SCH ×3 (10:02→18:24)
[2017-04-16] MEDS ORDERED: LACTULOSE 20 GM/30 ML UDCUP PO PRN (10:47)
[2017-04-16] MEDS ORDERED: POLYETHYLENE GLYCOL 3350 17 GM PKT PO PRN (10:47)
[2017-04-16] MEDS ORDERED: MAGNESIUM HYDROXIDE 30 ML UDCUP PO PRN (10:47)
[2017-04-16] MEDS ORDERED: BISACODYL 10 MG SUPP PR PRN (10:47)
--- NOTE | 2017-04-16 11:15 | NEUROPROG ---
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 I spoke with the patient and his nurse and will initiate IVIg 30gms daily for 5 consecutive days. 04/16/17 Today's total unit time was 25 minutes with greater than 50% of the time counseling coordination of care and review of the treatment plan. 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 He has received 1 dose of IVIG and will need for more consecutive days of treatment. He is stable clinically, although he has developed the autonomic complication of atrial fibrillation which can certainly occur with this syndrome and will also require close monitoring. I believe he should stay in the hospital for the entire treatment course. My partner will be taking over the neurologic monitoring starting tomorrow, Dr. Navarro. Subjective: The patient tells me that overnight he has been about the same and certainly not any better. He feels unsteady when he is walking and very uncomfortable trying to maintain good balance. The strength has not significantly changed but remains still little bit weak in all of the extremities with distal paresthesias. He developed asymptomatic atrial fibrillation in the last 12 hours and still has atrial fibrillation on monitor. He has not found definite exacerbating or alleviating factors for the symptoms. Objective: Vital Signs Temp Pulse Resp BP Pulse Ox 36.4 C 110 H 14 100/69 97 04/16/17 08:00 04/16/17 08:00 04/16/17 08:00 04/16/17 08:00 04/16/17 08:00 Microbiology 04/15/17 18:06 Gram Stain - Final Cerebral Spinal Fluid Laboratory Results 04/16/17 04:40 04/16/17 04:40 04/15/17 04/16/17 04/17/17 05:59 05:59 05:59 Intake Total 1180 3182 Output Total 150 Balance 1180 3032 PT 14.3 SEC (12.0-15.0) 04/15/17 03:30 INR 1.12 (0.83-1.16) 04/15/17 03:30 He is awake and alert and attentive and able to follow commands without difficulty. Extraocular movements are intact. Normal facial sensation and movement. Motor examination continues to reveal some mild proximal muscle weakness in the upper extremities and minimal in the lower extremities but reflexes are absent in the legs and trace in the upper extremities. Sensation is still preserved for temperature and light touch despite the paresthesias. The spinal fluid is as noted below Laboratory Tests 04/15/17 18:06 CSF WBC 33 H CSF RBC 0 CSF Neutrophils % 10 H CSF Lymphocytes % 42 CSF Monos/Macrophage % 48 H CSF Glucose 45 L CSF Total Protein 100 H Allergies/Adverse Reactions: No Known Allergies Allergy (Verified 04/11/17 11:08)
--- NOTE | 2017-04-16 12:16 | HOSPPROG ---
Hospitalist Progress Note Assessment/Plan: 61-year-old healthy man is admitted with fever, rash and increasing back pain. Overnight he has developed numbness in his hands and legs as well as a little bit the lung numbness over his chest area. He was admitted with severe back pain for pain control. Evaluation has included MRIs of his cervical, thoracic and lumbar spine all of which were fairly unremarkable. 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 Torres * Appreciate excellent ID consult. # Junctional rhythm: Patient verify junctional rhythm overnight. Asymptomatic. Currently in sinus rhythm will continue to monitor. # AFib with rapid ventricular response, patient asymptomatic. Echocardiogram done, discussed with Cardiology. Given his previous junctional rhythm and I am hesitant to treat with nathalia blocking agents, will follow heart rate and symptoms for now * Will need ongoing cardiac monitoring given that Guillain-[place] syndrome can affect the heart * Add prophylactic Lovenox Subjective: Still with back pain, no new complaints. Objective: Vital Signs Temp Pulse Resp BP Pulse Ox 36.8 C 100 21 H 113/65 98 04/16/17 12:00 04/16/17 12:00 04/16/17 12:00 04/16/17 12:00 04/16/17 12:00 Microbiology 04/15/17 18:06 Gram Stain - Final Cerebral Spinal Fluid Laboratory Results 04/16/17 04:40 04/16/17 04:40 04/15/17 04/16/17 04/17/17 05:59 05:59 05:59 Intake Total 1180 3182 Output Total 150 Balance 1180 3032 PT 14.3 SEC (12.0-15.0) 04/15/17 03:30 INR 1.12 (0.83-1.16) 04/15/17 03:30 - Physical Exam Constitutional: appears nourished, uncomfortable Eyes: PERRL, anicteric sclera, EOMI Ears, Nose, Mouth, Throat: moist mucous membranes Cardiovascular: no murmur, rub, or gallop, irregularly irregular, No edema Respiratory: no respiratory distress, no rales or rhonchi, clear to auscultation Gastrointestinal: normoactive bowel sounds, soft, non-tender abdomen, no palpable masses Genitourinary: no bladder fullness, No blood in urethra Skin: warm, normal color Musculoskeletal: generalized weakness Neurologic: AAOx3, sensation intact bilaterally, No facial droop Psychiatric: interacting appropriately, not anxious, not encephalopathic ICD10 Worksheet Patient Problems: Problems Problem Status Onset Myalgia Acute Hyponatremia Acute Anemia Acute Hypochloremia Acute Elevated liver enzymes Acute Rash Acute
--- NOTE | 2017-04-16 12:28 | PDCARCONS ---
Cardiology Consult Reason for Consult: Atrial fibrillation with periodic bouts of junctional rhythm Chief Complaint: Weakness Requesting Physician: Hospitalist History of Present Illness: Patient is a 61 y/o male with unremarkable past cardiovascular history (no CAD, HTN, HLP, or DM), who presented to [facility] with complaints of back pains and fevers. Recent travel to [place] without issues on trip, but upon return home, fevers, back pains, and diaphoresis were noted. Admission to [facility] with neurology and ID consulted. At present, concerns about Guillain [place] Syndrome. Cardiology involvement was questioned given the newly noted atrial fibrillation and a bout of accelerated junctional tachycardia last night. No complaints of chest pains or pressure. No PND or orthopnea. No dizziness, but weakness and fatigue have been noted. Today, patient was sitting up in chair. Family was present in the room with the patient. On telemetry today, atrial fibrillation with rapid ventricular response was noted. No acute awareness of this arrhythmia was noted. Patient also has not noted a personal history of atrial fibrillation. [id number] score is 0. Echocardiogram with normal wall motion. No valve pathology was noted. Mild atrial dilation was noted. Remainder of the 12 point review of systems was unremarkable History Information - Allergies/Home Medication List Allergies/Adverse Reactions: No Known Allergies Allergy (Verified 04/11/17 11:08) I have personally reviewed and updated: family history, medical history, social history, surgical history - Past Medical History no pertinent PMH - Surgical History Reports: no pertinent surgical hx - Family History Positive for: non-pertinent - Social History Smoking Status: Never smoked Alcohol Use: None Drug Use: None Cardiac History - Cardiac History Cardiac Risk Factors: male Timing/Duration: Days Severity: moderate Severity Scale: 8 Location: other (generalized weakness) Activities at Onset: activity Modifying Factors: improves with: rest Associated Symptoms: diaphoresis, malaise Physical Exam Temp Pulse Resp BP Pulse Ox 36.8 C 100 21 H 113/65 98 04/16/17 12:00 04/16/17 12:00 04/16/17 12:00 04/16/17 12:00 04/16/17 12:00 O2 (L/minute) 2 Constitutional: no apparent distress, not in pain, chronically ill appearing Eyes: PERRL Ears, Nose, Mouth, Throat: moist mucous membranes Cardiovascular: no murmur, rub, or gallop, irregularly irregular, tachycardia, No JVD Peripheral Pulses: 2+: dorsalis-pedis (R), dorsalis-pedis (L) Respiratory: no respiratory distress, no rales or rhonchi, clear to auscultation Gastrointestinal: normoactive bowel sounds Skin: warm, no rashes or abrasions Musculoskeletal: generalized weakness Neurologic: AAOx3 Psychiatric: interacting appropriately, not anxious, not encephalopathic Lab and Imaging 04/16/17 04:40 04/16/17 04:40 WBC 6.33 10^3/uL (3.80-9.50) 04/16/17 04:40 RBC 4.50 10^6/uL (4.40-6.38) 04/16/17 04:40 Hgb 13.6 g/dL (13.7-17.5) L 04/16/17 04:40 Hct 39.0 % (40.0-51.0) L 04/16/17 04:40 MCV 86.7 fL (81.5-99.8) 04/16/17 04:40 MCH 30.2 pg (27.9-34.1) 04/16/17 04:40 MCHC 34.9 g/dL (32.4-36.7) 04/16/17 04:40 RDW 13.2 % (11.5-15.2) 04/16/17 04:40 Plt Count 283 10^3/uL (150-400) D 04/16/17 04:40 MPV 9.7 fL (8.7-11.7) 04/16/17 04:40 Neut % (Auto) 74.7 % (39.3-74.2) H 04/16/17 04:40 Lymph % (Auto) 13.1 % (15.0-45.0) L 04/16/17 04:40 [place] % (Auto) 11.2 % (4.5-13.0) 04/16/17 04:40 Eos % (Auto) 0.2 % (0.6-7.6) L 04/16/17 04:40 Baso % (Auto) 0.3 % (0.3-1.7) 04/16/17 04:40 Nucleat RBC Rel Count 0.0 % (0.0-0.2) 04/16/17 04:40 Absolute Neuts (auto) 4.73 10^3/uL (1.70-6.50) 04/16/17 04:40 Absolute Lymphs (auto) 0.83 10^3/uL (1.00-3.00) L 04/16/17 04:40 Absolute Monos (auto) 0.71 10^3/uL (0.30-0.80) 04/16/17 04:40 Absolute Eos (auto) 0.01 10^3/uL (0.03-0.40) L 04/16/17 04:40 Absolute Basos (auto) 0.02 10^3/uL (0.02-0.10) 04/16/17 04:40 Absolute Nucleated RBC 0.00 10^3/uL (0-0.01) 04/16/17 04:40 Immature Gran % 0.5 % (0.0-1.1) 04/16/17 04:40 Immature Gran # 0.03 10^3/uL (0.00-0.10) 04/16/17 04:40 ESR 9 MM/HR (0-20) 04/14/17 07:00 PT 14.3 SEC (12.0-15.0) 04/15/17 03:30 INR 1.12 (0.83-1.16) 04/15/17 03:30 APTT 30.2 SEC (23.0-38.0) 04/15/17 03:30 Sodium 122 mEq/L (134-144) L 04/16/17 04:40 Potassium 4.2 mEq/L (3.5-5.2) 04/16/17 04:40 Chloride 91 mEq/L (97-110) L 04/16/17 04:40 Carbon Dioxide 23 mEq/l (22-31) 04/16/17 04:40 Anion Gap 8 mEq/L (8-16) 04/16/17 04:40 BUN 17 mg/dL (7-23) 04/16/17 04:40 Creatinine 0.7 mg/dL (0.7-1.3) 04/16/17 04:40 Estimated GFR > 60 04/16/17 04:40 Glucose 101 mg/dL (70-100) H 04/16/17 04:40 Calcium 8.6 mg/dL (8.5-10.4) 04/16/17 04:40 Magnesium 2.0 mg/dL (1.6-2.3) 04/16/17 04:40 Total Bilirubin 0.8 mg/dL (0.1-1.4) 04/16/17 04:40 AST 50 IU/L (17-59) 04/16/17 04:40 ALT 108 IU/L (21-72) H 04/16/17 04:40 Alkaline Phosphatase 142 IU/L (38-126) H 04/16/17 04:40 Creatine Kinase 73 IU/L (0-224) 04/14/17 07:00 Total Protein 6.3 g/dL (6.3-8.2) 04/16/17 04:40 Albumin 3.3 g/dL (3.5-5.0) L 04/16/17 04:40 Lipase 730.0 IU/L (23-300) H 04/14/17 20:40 TSH 2.990 uIU/mL (0.465-4.680) 04/16/17 04:40 Urine Color YELLOW 04/14/17 08:10 Urine Appearance HAZY 04/14/17 08:10 Urine pH 6.0 (5.0-7.5) 04/14/17 08:10 Ur Specific [place] 1.015 (1.002-1.030) 04/14/17 08:10 Urine Protein 1+ (NEGATIVE) H 04/14/17 08:10 Urine Ketones 1+ (NEGATIVE) H 04/14/17 08:10 Urine Blood NEGATIVE (NEGATIVE) 04/14/17 08:10 Urine Nitrate NEGATIVE (NEGATIVE) 04/14/17 08:10 Urine Bilirubin NEGATIVE (NEGATIVE) 04/14/17 08:10 Urine Urobilinogen NEGATIVE EU (0.2-1.0) 04/14/17 08:10 Ur Leukocyte Esterase NEGATIVE (NEGATIVE) 04/14/17 08:10 Urine RBC 3-5 /hpf (0-3) H 04/14/17 08:10 Urine WBC 3-5 /hpf (0-3) H 04/14/17 08:10 Ur Epithelial Cells NONE SEEN /lpf (NONE-1+) 04/14/17 08:10 Urine Mucus TRACE /lpf (NONE-1+) 04/14/17 08:10 Urine Glucose NEGATIVE (NEGATIVE) 04/14/17 08:10 CSF Tube Number 4 04/15/17 18:06 CSF Appearance CLEAR (CLEAR) 04/15/17 18:06 CSF Color COLORLESS (COLORLESS) 04/15/17 18:06 CSF Supernatant COLORLESS (COLORLESS) 04/15/17 18:06 CSF WBC 33 /mm3 (0-5) H 04/15/17 18:06 CSF RBC 0 /mm3 (0-0) 04/15/17 18:06 CSF Neutrophils % 10 % (0-6) H 04/15/17 18:06 CSF Lymphocytes % 42 % (0-100) 04/15/17 18:06 CSF Monos/Macrophage % 48 % (0-45) H 04/15/17 18:06 CSF Glucose 45 mg/dL (50-75) L 04/15/17 18:06 CSF Total Protein 100 mg/dL (12-60) H 04/15/17 18:06 Acetaminophen < 10 mcg/mL (10.0-30.0) L 04/14/17 20:40 Visualized and Interpreted Chest x-ray results: No Chest X-ray Interpretation: other (no CXR performed) Visualized and Interpreted EKG results: Yes EKG additional interpertation: Junctional rhythm (accelerated) Telemetry: atrial fibrillation with rapid ventricular response Echocardiogram: normal left ventricular systolic ejection fraction. Mild biatrial dilation was noted. A/P Assessment: Patient is a 61 y/o male with unremarkable past cardiovascular history with "new " atrial fibrillation and ongoing work up and treatment for what appears to be Guillan [place] Syndrome. ID and Neurology are involved with the patient's care. [id number] score is zero at present. Supportive measures are ongoing. No voiced cardiovascular complaints. Plan: (1) Would use Lovenox (1mg/kg) twice per day (subcutaneous) for both DVT and CVA prophylaxis (2) Would maintain currently therapies for GBS (3) Would not pursue NIKKI with possible cardioversion at present, but rather attempt to get patient through the current event (4) Cardiology will continue to follow this patient
--- NOTE | 2017-04-16 12:46 | ECHO ---
[id number] + + [phone] : : [place] [address] : : [phone] + Adult Echocardiographic Report + ----+ :Name: PATRICIA CROSSAllison Date: 04/16/2017 10:11 AM : : Hospital Admission Number: [id number] Location: 244: :: 1955 Gender: Male Height: 72 in : :Age: 61 yrs Race: WH Weight: 164 lb : :Reason For Study: Rapid afib : : BSA: 2.0 meters2 : + ----+ MMode/2D Measurements \T\ Calculations IVSd: 0.98 cm LVIDd: 4.7 cm FS: 30.2 % Ao root diam: LVPWd: 0.99 cm LVIDs: 3.3 cm EDV(Teich): 3.6 cm 104.9 ml LA dimension: ESV(Teich): 3.7 cm 44.6 ml EF(Teich): 57.5 % LVLd ap4: 8.1 cm SV(MOD-sp4): EDV(MOD-sp4): 39.0 ml 76.0 ml LVLs ap4: 7.3 cm ESV(MOD-sp4): 37.0 ml EF(MOD-sp4): 51.3 % Normal Measurement Values: + + :LVIDd (3.5-5.7cm) IVSd (0.6-1.1cm) LVPWd (0.6-1.1cm) Aortic Root (2.0-3.7cm)Left Atrium (1.5-4.0cm): :LV Vol(d) (76-115ml) LV Vol(s) (29-48ml) Ejec Fraction (50-65%)PV Kevin (0.6- 1.2m/s) TV Kevin (0.4-1.0m/s) : :MV E Kevin (0.8-1.0m/s)MV A Kevin (0.3-1.0m/s)LVOT Kevin (0.7-1.2m/s) Asc Ao Kevin ( 0.9-1.8m/s) : + + Doppler Measurements \T\ Calculations MV E max kevin: 56.3 cm/sec Ao V2 max: 81.4 cm/sec Ao max P.7 mmHg Left Ventricle The left ventricle is normal in size. There is normal left ventricular wall thickness. Ejection Fraction = 60-65%. The left ventricular ejection fraction is calculated at 57.5 %. Septal motion is consistent with conduction abnormality. Right Ventricle The right ventricle is normal in size and function. Atria The left atrium is mildly dilated. The right atrium is mild to moderately dilated. Mitral Valve Calcified mitral apparatus. There is mild mitral regurgitation. Tricuspid Valve Normal tricuspid valve. There is mild tricuspid regurgitation. Aortic Valve The aortic valve opens well. The aortic valve is trileaflet. There is no aortic stenosis. There is no aortic insufficiency. Pulmonic Valve The pulmonic valve is not well visualized. There is no pulmonic valvular regurgitation. Great Vessels The aortic root is normal size. Pericardium/Pleural There is no pericardial effusion. Conclusion A complete two-dimensional transthoracic echocardiogram was performed (2D, M-mode, Doppler and color flow Doppler). (1) Left ventricular systolic ejection fraction was normal (60-65%) - septal wall motoin consistent with conduction abnormality - patient was in atrial fibrillation over course of this study (2) No left ventricular hypertrophy (3) Diastolic dysfunction was present - patient was in atrial fibrillation over course of this study (4) Normal right ventricular size and function (5) Mild left atrial dilation with mild to moderate right atrial dilation (6) Mild mitral regurgitation with mild annular calcification (7) Trileaflet aortic valve without sclerosis or insufficiency (8) Trace/mild tricuspid regurgitation (9) Poor visualization of the pulmonic valve (10) No comparison echocardiogram Final Reading Physician: Peng Latham, Melectronically signed on 04/16/2017 12:45 PM Ordering Physician: Ynes Kraft Performed By: Dimple Souza RDCS
--- NOTE | 2017-04-16 13:05 | GCON ---
[f rep st] CONSULTATION PULMONARY CRITICAL CARE CONSULTATION DATE OF CONSULTATION: 04/16/2017 REASON FOR CONSULTATION: Intensive care unit evaluation and management of a patient with progressiv e neurologic symptoms possibly consistent with Guillain-[place]. HISTORY: The patient is a very pleasant, previously healthy 61-year-old. Over the last week to 10 days, he noted some chills and sweats. He was seen in the emergency department and was suspected of having a viral syndrome. This was followed by some feelings of shortness of breath. CT angiogram was negative. He also had some low back pain and developed paresthesias in his hands and legs, asso ciated with the feeling of weakness and unsteadiness with walking. He came back to the emergency de partment. There, a CT scan of the spine was negative for significant abnormalities. Laboratory celio dies showed elevated liver function studies. He was subsequently admitted for a possible epidural a bscess. MRIs of the spine showed no evidence of significant infection. Some mild arthritic disease is prese nt with a slightly bulging disk at L4-5, not felt to be associated with his neurologic symptoms, but probably associated with his back pain. He was seen by Neurology. It was felt that he could possi ross have Guillain-[place] syndrome. A lumbar puncture was ordered, which showed elevated protein and a mild lymphocytosis possibly consistent with this diagnosis. IVIG has been initiated. Multiple se rologies are pending. He has been seen by Infectious Disease as well. Further serologies were orde red by Dr. Blas and are pending. The patient definitely has lower extremity greater than upper extremity weakness, and is having diff iculty ambulating with a wide-based gait. On one occasion ambulating in the halls, his legs gave ou t on him. He denies any shortness of breath at this point in time. He has no cough or mucus. He feels his br eathing is normal. He denies any problems with swallowing food, aspiration, or oropharyngeal diffic ulties. PAST MEDICAL HISTORY: Largely unremarkable. He has known lumbar spinal degenerative disease. He h as difficulty sleeping secondary to this and cannot be in bed for over 7 hours before he gets very u ncomfortable. This has been a chronic problem. MEDICATIONS: At home, included oxycodone, triazolam, and Zofran as needed. SOCIAL HISTORY: The patient is with a very supportive family. 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 Tobacco is negative. He generally has 1 drink per night. FAMILY HISTORY: Hypertension. REVIEW OF SYSTEMS: A 10-point review of systems is negative. There is no history of heart disease. No history of lung disease. No thromboembolic disease. Other problems are negative. PHYSICAL EXAMINATION: GENERAL: Reveals a relatively fit appearing gentleman in no distress. VITAL SIGNS: Blood pressure is approximately 120/60, heart rate 110 with atrial fibrillation on the harjete tor, respiratory rate is 14. He is afebrile. NECK: Unremarkable for lymphadenopathy or thyromegal y. There is no jugular venous distention. CHEST: Clear. Excursions seem normal. HEART: Irregul ar currently, with atrial fibrillation on the monitor. There were no significant murmurs. No carrasco ps. ABDOMEN: Soft, nontender. Bowel sounds are present. EXTREMITIES: Unremarkable for edema, co rds, or tenderness. NEUROLOGIC: Notable for subjective paresthesias, lower extremity greater than upper extremity weakness, but generally acceptable strength at this point in time. He was not ambul ated. Per Neurology, reflexes are absent in the lower extremities, diminished in the upper extremit ies. IMAGING: Radiologic studies are as outlined above. LABORATORY: White blood cell count 6300, hematocrit 39, platelets 283,000. PT and PTT were normal. Sodium is 122, potassium 4.2, BUN 17 with a creatinine of 0.7, glucose is 100. Bilirubin is tatiana l. AST is 50 down from 100, ALT is 108 down from 136. Albumin is 3.3. TSH is normal at 2.9. CSF studies are as noted above, with a high protein and mild lymphocytosis. Glucose was low at 45. Mul tiple serologies are pending. Blood cultures are pending. CSF culture is pending. ASSESSMENT AND PLAN: 1. Presumed Guillain-[place]. He presents with progressive neurologic symptoms in the setting of a p robable recent viral illness. CSF studies are consistent with this. He is having no respiratory pr oblems or swallowing dysfunction at this point in time. Alternative diagnoses, viral, are being con sidered and multiple serologies are pending. He has been started on IVIG for the presumptive diagno sis of Guillain-[place]. He will be kept in the intensive care unit and monitored closely. Vital cap acity and negative inspiratory force measurements will be obtained daily. Swallowing function will be followed clinically, as he is having no problems with this at the present time. 2. New onset atrial fibrillation, query viral. Cardiac echo reportedly is normal. He has been see n by Cardiology. Full-dose anticoagulation with Lovenox is being recommended. Rate control can be used if needed. Attempts at conversion will not currently be made. 3. Deep venous thrombosis prophylaxis. Enoxaparin, as above. 4. Gastrointestinal prophylaxis. None required, eating. 5. Metabolic, hyponatremia. Sodium is dropping. He has been placed on a fluid restriction and is being given salt tablets. Sodium will be followed. PLANS AND RECOMMENDATIONS: The patient will be kept in the intensive care unit. Neurologic status will be monitored. Daily vital capacity and NIF measurements will be obtained. Sodiums will be fol lowed. Fluid restriction for all oral fluids will be maintained. Further serologies will be awaite d. Further plans and recommendations will be made based on his progress over the next 12-24 hours. /[id number]/MODL
--- NOTE | 2017-04-16 15:42 | PCMIDPN ---
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 Serologies/PCR study for multiple viral etiologies including CMV, EBV, HSV, VZV, enterovirus and West Nile virus are pending. Started on IVIG by Neurology. No evidence to suggest this is primary bacterial etiology. Continue observation off antibacterials. Await CSF studies for additional guidance. 04/16/17 15:37 Subjective: Patient feels a little better today. Started on IVIG for probable Guillain- [place]. Rash less prominent. Developed atrial fibrillation. Objective: Vital Signs Temp Pulse Resp BP Pulse Ox 36.8 C 100 21 H 113/65 98 04/16/17 12:00 04/16/17 12:00 04/16/17 12:00 04/16/17 12:00 04/16/17 12:00 Microbiology 04/15/17 18:06 Gram Stain - Final Cerebral Spinal Fluid Laboratory Results 04/16/17 04:40 04/16/17 14:25 04/15/17 04/16/17 04/17/17 05:59 05:59 05:59 Intake Total 1180 3182 Output Total 150 Balance 1180 3032 ESR 9 MM/HR (0-20) 04/14/17 07:00 No antibiotic therapy Serum EBV, CMV, West Nile virus antibody, West Nile virus PCR pending Blood cultures x2 no growth HIV antibody pending CSF for HSV/VZV, West Nile virus, and enterovirus by PCR pending - Physical Exam General Appearance: alert, no apparent distress EENT: pharynx normal, No thrush, No conjunctival petechiae Respiratory: lungs clear, No respiratory distress Cardiac/Chest: irregularly irregular Extremities: No inflammation Abdomen: non-tender, No distended Skin: No rash (Resolved) ICD10 Worksheet Patient Problems: Problems Problem Status Onset Anemia Acute Elevated liver enzymes Acute Hypochloremia Acute Hyponatremia Acute Myalgia Acute Rash Acute
[2017-04-16] MEDS: diphenhydrAMINE 50 MG CAP PO SCH (17:27)
[2017-04-16] MEDS: ACETAMINOPHEN 325 MG TAB PO SCH (17:27)
[2017-04-16] MEDS: IMMUNE GLOBULIN 10 GM/100 ML VIAL IV SCH (18:22)
[2017-04-16 18:25] LABS: POTASSIUM 4.4 mEq/L (3.5-5.2)
[2017-04-16] MEDS: HYDROmorphONE/DILAUDID 1 MG/ML SYR IVP PRN (19:44)
[2017-04-16] MEDS: SENNOSIDES/DOCUSATE SODIUM TAB PO SCH (19:44)
[2017-04-16] MEDS: IMMUNE GLOBULIN 20 GM/200 ML VIAL IV SCH (19:45)
[2017-04-16] MEDS: TRIAZOLAM 0.25 MG TAB PO SCH (19:45)
[2017-04-16] MEDS: ENOXAPARIN 80 MG/0.8 ML SYR SC SCH (19:45)
[2017-04-17] MEDS: ONDANSETRON 4 MG/2 ML VIAL IVP PRN ×4 (00:58→20:24)
[2017-04-17] MEDS: METOPROLOL TARTRATE 25 MG TAB PO SCH ×3 (05:15→20:29)
[2017-04-17 05:43] LABS: % IMMATURE GRANULYOCYTES 0.5 % (0.0-1.1); ABSOLUTE IMMATURE GRANULOCYTES 0.04 10^3/uL (0.00-0.10); ADD DIFF? NO; ADD MORPH? NO; ADD SCAN? NO; ATYPICAL LYMPHOCYTE FLAG 30 (0-99); FRAGMENT RBC FLAG 0 (0-99); HEMOGLOBIN 14.2 g/dL (13.7-17.5); LEFT SHIFT FLG 0 (0-99); LIPEMIA HEMOLYSIS FLAG 90 (0-99); MEAN CELL HEMOGLOBIN 30.4 pg (27.9-34.1); MEAN CELL HEMOGLOBIN CONCENTR. 35.5 g/dL (32.4-36.7); MEAN CELL VOLUME 85.7 fL (81.5-99.8); MEAN PLATELET VOLUME 9.4 fL (8.7-11.7); PLATELET CLUMPS FLAG 10 (0-99); PLATELET COUNT 353 10^3/uL (150-400); RED BLOOD CELL COUNT 4.67 10^6/uL (4.40-6.38); RED CELL DISTRIBUTION WIDTH 13.1 % (11.5-15.2)
[2017-04-17 06:08] LABS: ALANINE AMINOTRANSFERASE 85 IU/L (21-72); ALBUMIN 3.2 g/dL (3.5-5.0); ALKALINE PHOSPHATASE 130 IU/L (38-126); ANION GAP 8 mEq/L (8-16); ASPARTATE AMINOTRANSFERASE 36 IU/L (17-59); BILIRUBIN,TOTAL 0.8 mg/dL (0.1-1.4); CALCIUM 8.6 mg/dL (8.5-10.4); CARBON DIOXIDE 21 mEq/l (22-31); CHLORIDE 91 mEq/L (97-110); CREATININE 0.6 mg/dL (0.7-1.3); GLOMERULAR FILTRATION RATE > 60; GLUCOSE 107 mg/dL (70-100); MAGNESIUM 1.9 mg/dL (1.6-2.3); POTASSIUM 4.3 mEq/L (3.5-5.2); SODIUM 120 mEq/L (134-144); TOTAL PROTEIN 6.5 g/dL (6.3-8.2)
[2017-04-17] MEDS: SENNOSIDES/DOCUSATE SODIUM TAB PO SCH ×2 (09:15→20:24)
[2017-04-17] MEDS: SODIUM CHLORIDE 1,000 MG TAB PO SCH ×3 (09:16→18:14)
[2017-04-17] MEDS: ENOXAPARIN 80 MG/0.8 ML SYR SC SCH ×2 (09:16→20:25)
--- NOTE | 2017-04-17 11:49 | HOSPPROG ---
Hospitalist Progress Note Assessment/Plan: 61-year-old healthy man is admitted with fever, rash and increasing back pain. Overnight he has developed numbness in his hands and legs as well as a little bit the lung numbness over his chest area. He was admitted with severe back pain for pain control. Evaluation has included MRIs of his cervical, thoracic and lumbar spine all of which were fairly unremarkable. 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 Discussed in multi-disciplinary rounds. 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 Torres * Appreciate excellent ID consult. # urinary retention: Unclear if this is related to the Guillain-Llewellyn syndrome , no obvious abnormalities on his MRI. Will place a Blood and follow # constipation, patient on bowel protocol will try suppositories # Junctional rhythm: Patient verify junctional rhythm overnight. Asymptomatic. Currently in sinus rhythm will continue to monitor. # AFib with rapid ventricular response, patient asymptomatic. Echocardiogram done, discussed with Cardiology. Given his previous junctional rhythm and I am hesitant to treat with nathalia blocking agents, however continues to be tachycardic * Started on metoprolol will follow rate Subjective: Patient complains of some urinary retention although he really has minimal symptoms from this. Otherwise he says his neurologic status is about the same. Continues to have fairly significant low back pain Objective: Vital Signs Temp Pulse Resp BP Pulse Ox 36.5 C 123 H 17 115/70 97 04/17/17 03:25 04/17/17 09:15 04/17/17 05:15 04/17/17 09:15 04/17/17 05:15 Microbiology 04/15/17 18:06 Gram Stain - Final Cerebral Spinal Fluid Laboratory Results 04/17/17 05:15 04/17/17 05:15 04/16/17 04/17/17 04/18/17 05:59 05:59 05:59 Intake Total 3182 1450 Output Total 150 1350 Balance 3032 100 PT 14.3 SEC (12.0-15.0) 04/15/17 03:30 INR 1.12 (0.83-1.16) 04/15/17 03:30 - Physical Exam Constitutional: uncomfortable Eyes: PERRL, EOMI Ears, Nose, Mouth, Throat: moist mucous membranes Cardiovascular: no murmur, rub, or gallop, irregularly irregular, tachycardia Respiratory: no respiratory distress, no rales or rhonchi, clear to auscultation Gastrointestinal: normoactive bowel sounds, soft, non-tender abdomen, no palpable masses Genitourinary: no bladder fullness, blood in urethra Skin: warm, normal color Musculoskeletal: No full muscle strength Neurologic: AAOx3, No facial droop Psychiatric: interacting appropriately, not anxious, not encephalopathic ICD10 Worksheet Patient Problems: Problems Problem Status Onset Myalgia Acute Hyponatremia Acute Anemia Acute Hypochloremia Acute Elevated liver enzymes Acute Rash Acute
--- NOTE | 2017-04-17 12:20 | PDINTPN ---
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 MRI of cervical, thoracic, and lumbar spine unremarkable but LP showed high protein and WBC 33 (mostly lymphs and macrophages). Also developed afib and cardiology following. Devloped urinary retention after 3 days of IVIG for presumed Guillan-[place] syndrome. Unable to lay in bed due to severity of back pain. * GB (AIDP) - no evidence of progression, but no improvement to date per patient. VC> 1000 ml and NIF >-40, suggesting no pulmonary involvement. Urinary retention is problematic and will await neurology comment on this. Jaquez placed per patient request, though intermittent straight cath has lower risk for infection. Per staff radiologist, he has normal rectal tone. Multiple serologies also pending at this time. * Afib- currently NSR with normal echo. Prn metoprolol. Objective: Vital Signs Temp Pulse Resp BP Pulse Ox 36.5 C 123 H 17 115/70 97 04/17/17 03:25 04/17/17 09:15 04/17/17 05:15 04/17/17 09:15 04/17/17 05:15 Microbiology 04/15/17 18:06 Gram Stain - Final Cerebral Spinal Fluid Laboratory Results 04/17/17 05:15 04/17/17 05:15 04/16/17 04/17/17 04/18/17 05:59 05:59 05:59 Intake Total 3182 1450 Output Total 150 1350 Balance 3032 100 PT 14.3 SEC (12.0-15.0) 04/15/17 03:30 INR 1.12 (0.83-1.16) 04/15/17 03:30 Physical Exam - Physical Exam General Appearance: WD/WN, alert, no apparent distress EENT: PERRL/EOMI, normal ENT inspection Neck: supple Respiratory: lungs clear, normal breath sounds, No respiratory distress Cardiac/Chest: normal peripheral pulses, regular rate, rhythm, No edema Abdomen: normal bowel sounds, non-tender, soft, No distended Skin: normal color, warm/dry, No cyanosis Lymphatic: no adenopathy Extremities: normal range of motion, No pedal edema Neuro/Psych: alert, normal mood/affect, oriented x 3, No motor weakness (while sitting in chair) ICD10 Worksheet Patient Problems: Problems Problem Status Onset Anemia Acute Elevated liver enzymes Acute Hypochloremia Acute Hyponatremia Acute Myalgia Acute Rash Acute
[2017-04-17] MEDS: diphenhydrAMINE 50 MG CAP PO SCH (13:14)
[2017-04-17] MEDS: ACETAMINOPHEN 325 MG TAB PO SCH (13:14)
--- NOTE | 2017-04-17 13:32 | NEUROPROG ---
Assessment: 1. Acute on chronic back pain 2. Weakness and paresthesias 3. Abnormal CSF exam 35 total minutes floor time; over 50% counseling regarding the patient's condition, testing and treatment plan. I reviewed his extensive hospital records. Certainly, the patient's evolving symptoms are consistent with Guillain-[place] syndrome presentation. I did add a rabies antibodies to his diagnostic panel. He denies any exposure to suggest this diagnosis. We will continue IVIG. Today is 01/08. We will continue to monitor for any autonomic abnormalities, blood pressure swings, further dysrhythmias and treat urinary retention. Once he has completed IVIG on Monday, if he is stable, we can certainly consider inpatient rehabilitation. He has had no shortness of breath or dyspnea. Subjective: No new symptoms Objective: Vital Signs Temp Pulse Resp BP Pulse Ox 36.7 C 135 H 17 105/60 97 04/17/17 12:00 04/17/17 12:00 04/17/17 12:00 04/17/17 12:00 04/17/17 12:00 Microbiology 04/15/17 18:06 Gram Stain - Final Cerebral Spinal Fluid Laboratory Results 04/17/17 05:15 04/17/17 05:15 04/16/17 04/17/17 04/18/17 05:59 05:59 05:59 Intake Total 3182 1450 Output Total 150 1350 Balance 3032 100 PT 14.3 SEC (12.0-15.0) 04/15/17 03:30 INR 1.12 (0.83-1.16) 04/15/17 03:30 The patient is awake and alert No dyspnea Allergies/Adverse Reactions: No Known Allergies Allergy (Verified 04/11/17 11:08)
[2017-04-17] MEDS: IMMUNE GLOBULIN 10 GM/100 ML VIAL IV SCH (13:56)
[2017-04-17] MEDS: IMMUNE GLOBULIN 20 GM/200 ML VIAL IV SCH (13:56)
[2017-04-17 14:12] LABS: ANTI EBNA Positive (Negative); ANTI VCA/IgG Positive (Negative); ANTI VCA/IgM Negative (Negative)
[2017-04-17] MEDS ORDERED: METOPROLOL TARTRATE 5 MG/5 ML INJ IVP ONE (15:49)
[2017-04-17 18:57] LABS: POTASSIUM 4.1 mEq/L (3.5-5.2)
--- NOTE | 2017-04-17 19:01 | PCMIDPN ---
Assessment/Plan: Assessment: atypical Guillain-[place] syndrome versus aseptic meningitis. It is conceivable that the patient could have viral meningitis and a Guillain-[place] syndrome as well. Regardless clinically the patient appears stable over the past 48 hours. His last fever was 2 midnights ago. His weakness continues however. It is curious how the numbness and weakness is mostly affecting his upper extremities rather than his lower. I think the West Nile virus remains a top contender for infectious causes for this syndrome. The serologies are pending. EBV serology is indicate prior infection. HIV tests negative. CMV serology is reveal no prior exposure. Patient continues on IVIG empirically. No empiric antibiotics. Plan: 1. Continue to observe off antibiotics. 2. follow clinical course and follow up on laboratory data that is pending. Subjective: Patient is sitting up. His daughter is visiting from [place]. He notes clinical stability over the last 48 hours. No subjective fevers or chills. Remains with numbness and weakness in his upper and lower extremities. His upper extremities symptoms appear to be more noticeable and problematic. Objective: no antibiotics Vital Signs Temp Pulse Resp BP Pulse Ox 37.2 C 110 H 17 135/75 H 98 04/17/17 16:00 04/17/17 16:50 04/17/17 16:00 04/17/17 16:50 04/17/17 16:00 Microbiology 04/15/17 18:06 Gram Stain - Final Cerebral Spinal Fluid Laboratory Results 04/17/17 05:15 04/17/17 18:43 04/16/17 04/17/17 04/18/17 05:59 05:59 05:59 Intake Total 3182 1450 557 Output Total 150 1350 750 Balance 3032 100 -193 ESR 9 MM/HR (0-20) 04/14/17 07:00 - Physical Exam General Appearance: WD/WN, alert, no apparent distress, non-toxic Respiratory: lungs clear, normal breath sounds, No respiratory distress Cardiac/Chest: regular rate, rhythm, No tachycardia Extremities: non-tender, normal inspection Skin: normal color, warm/dry, No rash Neuro/Psych: alert, normal mood/affect, oriented x 3, motor weakness, sensory deficit ICD10 Worksheet Patient Problems: Problems Problem Status Onset Anemia Acute Elevated liver enzymes Acute Hypochloremia Acute Hyponatremia Acute Myalgia Acute Rash Acute
[2017-04-17] MEDS: TRIAZOLAM 0.25 MG TAB PO SCH (20:25)
[2017-04-17] MEDS: HYDROmorphONE/DILAUDID 1 MG/ML SYR IVP PRN (20:25)
--- NOTE | 2017-04-18 07:06 | GCON ---
[f rep st] CONSULTATION CARDIOLOGY CONSULTATION DATE OF CONSULTATION: 04/17/2017 HISTORY: The patient is a 61-year-old, previously healthy man who presented to the hospital with 3 nights of back pain. He has had a history of cervical and lumbar spine disease but had worsening pa in. He has not had bowel or bladder incontinence. Has not had prior back surgery. He does not hav e focal lower extremity weakness, but he felt as if both his legs were slightly weak. He recently t raveled to [place] and was not sleeping in his usual bed. In the last week, he has had a couple of e pisodes of drenching night sweats. It is not clear that he has had documented fevers. He had a krissy st x-ray, which was negative and was diagnosed with a viral syndrome. He had a CTA of his chest don e on April 09 which was concerning for pulmonary embolism with a mild T8 compression. He had an abdom inal ultrasound in response abnormal LFTs which was unremarkable. ALLERGIES: He is not known to be allergic to medications. MEDICATIONS: His home medications include Percocet, Halcion, and ondansetron. 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 He drin ks daily but not to excess. He does not use or abuse injection drugs. FAMILY HISTORY: Pertinent for hypertension and no dyslipidemia. PHYSICAL EXAMINATION: VITAL SIGNS: On my evaluation today: VITAL SIGNS: Blood pressure of 118/79 , his heart rate is irregularly irregular and ranges from 105-118 on the monitor and shows atrial fi brillation. His respiratory rate is 20. Oxygen saturation is 95% on room air. NECK: Reveals no J VD or carotid bruit. I do not appreciate a murmur or gallop sound. LUNGS: Clear to auscultation b ilaterally. ABDOMEN: Benign with positive bowel sounds. It is nondistended and nontender. EXTREM ITIES: Warm, dry, and well perfused. Telemetry reveals the previously mentioned atrial fibrillation on the 12-lead EKG, one of which reve aled reveals an accelerated junctional rhythm with probable incomplete right bundle branch block. T he current telemetry reveals atrial fibrillation with rapid ventricular response as noted. His laboratory studiesreveal a white count of 7.53, H and H of 14.2 and 40.0. Coags reveal a PT/INR of 14.3 and 1.12. Sodium is low at 120 with a BUN and creatinine of 18 and 0.6, glucose 107. Alkal ine phosphatase is 130, ALT is 85. Urinalysis is positive for protein, ketones, and 3-5 RBCs and WB Cs per high-powered field. His other CSF reveals a total protein of 100 with 33 white cells, 0 red cells, 10 neutrophils, 42 lymphocytes, and 48 monos. Serology is positive for EBV capsid antigen Ig G antibody is negative for IVM, and the EBV nuclear antigen antibody is positive. The results show a probable past infection. Rabies virus antibodies and varicella zoster DNA PCR are pending at [facility]. IMPRESSION/PLAN: The patient has apparently been tentatively diagnosed with Guillain-[place] syndrome presentation. He is on day 3/5 of IVIG. His current cardiac issues include an intermittent juncti onal escape rhythm as well as atrial fibrillation with rapid ventricular response. He does not have an apparent history of these diagnoses in the past. Given the fact that we are having trouble cont rolling his ventricular rate, I think it may be prudent to consider a NIKKI guided cardioversion if no ne of the conscious sedation drugs we would use for that treatment would be contraindicated given hi s current acute neurological status. I do not believe that there is a unifying diagnosis at present which would explain his acute on chronic back pain, weakness, paresthesias, abnormal CSF exam, and his current cardiac rhythm issues. I will obtain an EKG in the morning. 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 Copy requested to: Primary care physician /[id number]/MODL
[2017-04-18 07:23] LABS: ANION GAP 9 mEq/L (8-16); CALCIUM 8.8 mg/dL (8.5-10.4); CARBON DIOXIDE 22 mEq/l (22-31); CHLORIDE 92 mEq/L (97-110); CREATININE 0.6 mg/dL (0.7-1.3); GLOMERULAR FILTRATION RATE > 60; GLUCOSE 95 mg/dL (70-100); MAGNESIUM 2.1 mg/dL (1.6-2.3); POTASSIUM 4.4 mEq/L (3.5-5.2); SODIUM 123 mEq/L (134-144)
--- NOTE | 2017-04-18 09:07 | CPEKG ---
Heart Rate: 150 RR Interval: 400 QRSD Interval: 98 QT Interval: 320 QTC Interval: 506 QRS Evans: 112 T Wave Evans: 32 EKG Severity - ABNORMAL ECG - EKG Impression: ATRIAL FIBRILLATION, V-RATE 100-197 EKG Impression: PROBABLE RIGHT VENTRICULAR HYPERTROPHY EKG Impression: PROLONGED QT INTERVAL Electronically Signed By: Chace Polanco 18-Apr-2017 15:41:55
[2017-04-18] MEDS: ENOXAPARIN 80 MG/0.8 ML SYR SC SCH ×2 (09:18→22:54)
[2017-04-18] MEDS: ONDANSETRON 4 MG/2 ML VIAL IVP PRN (09:18)
[2017-04-18] MEDS: METOPROLOL TARTRATE 25 MG TAB PO SCH ×2 (09:20→22:54)
[2017-04-18] MEDS: oxyCODONE IR 5 MG TAB PO PRN (09:20)
[2017-04-18] MEDS: SENNOSIDES/DOCUSATE SODIUM TAB PO SCH ×2 (09:20→22:54)
[2017-04-18] MEDS: SODIUM CHLORIDE 1,000 MG TAB PO SCH ×3 (09:20→17:02)
--- NOTE | 2017-04-18 11:40 | HOSPPROG ---
Hospitalist Progress Note Assessment/Plan: 61-year-old healthy man is admitted with fever, rash and increasing back pain. Overnight he has developed numbness in his hands and legs as well as a little bit the lung numbness over his chest area. He was admitted with severe back pain for pain control. Evaluation has included MRIs of his cervical, thoracic and lumbar spine all of which were fairly unremarkable. Lumbar puncture is most consistent with Guillain-[place] syndrome. Discussed in multi-disciplinary rounds. Developing urinary retention and has had no bowel movement in several days # Guillain-[place] syndrome likely from viral illness, currently neurologically stable * IVIG for 5 days, unfortunately patient not tolerating this due to intractable nausea vomiting. Will pre treat for today's infusion and decide further recommendations with Neurology. * Continue close monitoring, add NIF daily as needed currently his respiratory status has been stable * Appreciate Neurology, discussed with Dr. Navarro * Appreciate ID consult. * # low back pain: This is been patient's main complaints. Responding well to current medications however he is still unable to lay flat for long periods of time due to intractable back pain. Hopefully this will improve as we treat his Guillain-[place] syndrome. # urinary retention: Unclear if this is related to the Guillain-[place] syndrome , no obvious abnormalities on his MRI. Will place a Blood and follow # constipation, patient on bowel protocol will try suppositories # Junctional rhythm: Patient verify junctional rhythm overnight. Asymptomatic. Currently in sinus rhythm will continue to monitor. # AFib with rapid ventricular response, patient asymptomatic. Echocardiogram done, discussed with Cardiology. Given his previous junctional rhythm and I am hesitant to treat with nathalia blocking agents, however continues to be tachycardic * Patient to undergo NIKKI cardioversion today * Discussed with Dr. Yusuf Disposition: Patient will likely remain in the hospital few more days depending on therapy for Guillain-Graft[place] syndrome and his overall status and constellation of symptoms. Subjective: Doing okay no new complaints today. Neurologic status is stable he is asymptomatic from his AFib Objective: Vital Signs Temp Pulse Resp BP Pulse Ox 36.6 C 148 H 19 111/71 96 04/18/17 08:00 04/18/17 09:20 04/18/17 08:00 04/18/17 09:20 04/18/17 08:00 Microbiology 04/15/17 18:06 Gram Stain - Final Cerebral Spinal Fluid Laboratory Results 04/17/17 05:15 04/18/17 06:20 04/17/17 04/18/17 04/19/17 05:59 05:59 05:59 Intake Total 1450 757 Output Total 1350 1200 Balance 100 -443 PT 14.3 SEC (12.0-15.0) 04/15/17 03:30 INR 1.12 (0.83-1.16) 04/15/17 03:30 - Physical Exam Constitutional: appears nourished, uncomfortable Eyes: PERRL, anicteric sclera, EOMI Ears, Nose, Mouth, Throat: moist mucous membranes Cardiovascular: regular rate and rhythym, no murmur, rub, or gallop Respiratory: no respiratory distress, no rales or rhonchi Gastrointestinal: normoactive bowel sounds, soft, non-tender abdomen, no palpable masses Genitourinary: no bladder fullness, blood in urethra Skin: warm Musculoskeletal: full muscle strength Neurologic: AAOx3, No sensation intact bilaterally Psychiatric: interacting appropriately, not anxious, not encephalopathic ICD10 Worksheet Patient Problems: Problems Problem Status Onset Myalgia Acute Hyponatremia Acute Anemia Acute Hypochloremia Acute Elevated liver enzymes Acute Rash Acute
--- NOTE | 2017-04-18 13:30 | PDINTPN ---
Millinery Blocker Progress Note Assessment/Plan: Assessment/plan: 61 M with chronic back pain admitted with fever, rash and progressive weakness and paresthesias. MRI of cervical, thoracic, and lumbar spine unremarkable but LP showed high protein and WBC 33 (mostly lymphs and macrophages). Also developed afib and cardiology following. Devloped urinary retention after 3 days of IVIG for presumed Guillan-[place] syndrome. Unable to lay in bed due to severity of back pain. * GB (AIDP) - no evidence of progression, but no improvement to date per patient. Currently stable, but unable to tolerate IVIG 2/2 significant N/V after dose #2, and did not complete dose #3. Plasma exchange would be an alternative therapy, but would require a dialysis catheter placement. Defer to neurology for final call on this. * Afib- In and out of afib and seen by cardiology yesterday. Planning NIKKI and cardioversion- I dont think typical conscious sedation medications would be problematic (eg versed, fentanyl) but etomidate is an acceptable alternative with minimal risk in low dose. He has no current respiratory involvement from his GBS, so standard precautions should be reasonable. 04/18/17 13:26 Objective: Vital Signs Temp Pulse Resp BP Pulse Ox 36.5 C 117 H 17 103/64 97 04/18/17 12:00 04/18/17 12:00 04/18/17 12:00 04/18/17 12:00 04/18/17 12:00 Microbiology 04/15/17 18:06 Gram Stain - Final Cerebral Spinal Fluid Laboratory Results 04/17/17 05:15 04/18/17 06:20 04/17/17 04/18/17 04/19/17 05:59 05:59 05:59 Intake Total 1450 757 Output Total 1350 1200 Balance 100 -443 PT 14.3 SEC (12.0-15.0) 04/15/17 03:30 INR 1.12 (0.83-1.16) 04/15/17 03:30 Physical Exam - Physical Exam General Appearance: alert, no apparent distress EENT: PERRL/EOMI Neck: supple Respiratory: lungs clear, normal breath sounds, No respiratory distress Abdomen: non-tender, soft, No distended Skin: normal color, warm/dry Lymphatic: no adenopathy Extremities: No pedal edema Neuro/Psych: alert, normal mood/affect, oriented x 3 ICD10 Worksheet Patient Problems: Problems Problem Status Onset Anemia Acute Elevated liver enzymes Acute Hypochloremia Acute Hyponatremia Acute Myalgia Acute Rash Acute
[2017-04-18] MEDS: PROMETHAZINE HCL 25 MG/ML INJ IVP PRN ×2 (14:43→23:08)
[2017-04-18] MEDS: ACETAMINOPHEN 325 MG TAB PO SCH (15:29)
[2017-04-18] MEDS: diphenhydrAMINE 50 MG CAP PO SCH (15:30)
--- NOTE | 2017-04-18 15:55 | NEUROPROG ---
Assessment: 1. Acute on chronic back pain 2. At paresthesias 3. Abnormal CSF exam 4. Atrial fibrillation 5. Urinary retention 35 total minutes floor time; over 50% counseling regarding the patient's condition, testing and treatment plan. I reviewed the history again with his and the patient. Essentially, he has acute on chronic low back pain from probably in mobility. His primary neurologic symptoms have been ascending paresthesias in a stocking and glove distribution bilaterally. This is improving substantially by 50% based on the geography. The patient had significant nausea and vomiting which we initially thought was due to the IVIG. However, upon further history, it is likely or could be related to the narcotic pain medication he is taking. We will discontinue oxycodone and Dilaudid completely. We will give him gabapentin 300 mg three times daily, 1st dose now. We discussed potential risks, benefits and alternatives gabapentin. His actual GBS symptoms are quite mild and resolving, fortunately. We will try to complete the full course of IVIG with his 4th dose today. We will premedicate with Benadryl and anti nausea medication. He can also receive lorazepam 1 mg p.r.n. for nausea if needed. We will need to continue to closely monitor his cardiac rhythm and urinary retention, the autonomic disturbances associated with GBS. From my standpoint, there is no contraindication to cardioversion with NIKKI guidance - if the atrial fibrillation persists. Once we have completed the IVIG and in the interim, we need to be aggressive with physical therapy to get him up and moving as this will likely alleviate his back pain as well. He has had no shortness of breath or dyspnea. Subjective: No new symptoms neurologically. Improving paresthesias Objective: Vital Signs Temp Pulse Resp BP Pulse Ox 36.5 C 117 H 17 103/64 97 04/18/17 12:00 04/18/17 12:00 04/18/17 12:00 04/18/17 12:00 04/18/17 12:00 Microbiology 04/15/17 18:06 Gram Stain - Final Cerebral Spinal Fluid Laboratory Results 04/17/17 05:15 04/18/17 06:20 04/17/17 04/18/17 04/19/17 05:59 05:59 05:59 Intake Total 1450 757 Output Total 1350 1200 Balance 100 -443 PT 14.3 SEC (12.0-15.0) 04/15/17 03:30 INR 1.12 (0.83-1.16) 04/15/17 03:30 The patient was somnolent from recent Phenergan He has normal strength throughout. He has subjective paresthesias in his hands and feet bilaterally Areflexic at the knees and ankles. Allergies/Adverse Reactions: No Known Allergies Allergy (Verified 04/11/17 11:08)
[2017-04-18] MEDS: IMMUNE GLOBULIN 20 GM/200 ML VIAL IV SCH (16:41)
[2017-04-18] MEDS: IMMUNE GLOBULIN 10 GM/100 ML VIAL IV SCH (16:41)
[2017-04-18] MEDS: GABAPENTIN 300 MG CAP PO SCH ×3 (17:02→22:54)
--- NOTE | 2017-04-18 17:52 | PCMIDPN ---
Assessment/Plan: Assessment/Plan: * Probable Guillain [place] Syndrome likely precipitated by viral illness: CSF with mild pleocytosis which is mixed lymphocytic/monocytic. Serum West Nile virus PCR is negative. EBV antibody consistent with prior disease and CMV antibody negative. CSF studies for West Nile virus by PCR, enterovirus by PCR, and HSV/VZV by PCR still pending. West Nile virus antibodies in blood also pending. Negative serum PCR for West Nile does not rule out this disease and we have seen discordance serum and CSF results in the past. Will obtain Lyme antibody given this can be transmitted in [place] and can be associated with neurologic findings as well as cardiac arrhythmia although should not be associated with atypical lymphocytosis. Continues with IVIG infusions for probable Guillain-[place] syndrome. Continue observation off antibiotics. 04/18/17 17:52 04/18/17 17:56 04/18/17 17:56 Subjective: Patient complains of nausea which he associated with IVIG. Objective: Vital Signs Temp Pulse Resp BP Pulse Ox 37.1 C 102 H 17 123/81 H 97 04/18/17 16:00 04/18/17 16:00 04/18/17 16:00 04/18/17 16:00 04/18/17 12:00 Microbiology 04/15/17 18:06 Gram Stain - Final Cerebral Spinal Fluid CSF Culture - Final Laboratory Results 04/17/17 05:15 04/18/17 06:20 04/17/17 04/18/17 04/19/17 05:59 05:59 05:59 Intake Total 1450 757 Output Total 1350 1200 Balance 100 -443 ESR 9 MM/HR (0-20) 04/14/17 07:00 No antibiotic therapy Serum West Nile virus PCR negative CSF West Nile virus PCR, enterovirus PCR, HSV/VZV PCR, and serum West Nile virus antibodies are pending - Physical Exam General Appearance: alert, non-toxic EENT: No scleral icterus, No thrush Respiratory: lungs clear, No respiratory distress Cardiac/Chest: tachycardia Abdomen: non-tender, No distended Skin: No rash Neuro/Psych: alert, No confused ICD10 Worksheet Patient Problems: Problems Problem Status Onset Anemia Acute Elevated liver enzymes Acute Hypochloremia Acute Hyponatremia Acute Myalgia Acute Rash Acute
--- NOTE | 2017-04-18 19:19 | PDCARPN ---
Cardiology Progress Note Assessment/Plan: Assessment Paroxysmal atrial fibrillation with rapid ventricular response. Plan: NIKKI cardioversion is planned in a.m. Risks, benefits and alternatives of this course of action were discussed with the patient and his significant others in a ~30 min bedside consultation. 04/18/17 19:16 Objective: Vital Signs (8 Hrs) Temp Pulse Resp BP Pulse Ox 04/18/17 16:00 37.1 C 102 H 17 123/81 H 04/18/17 12:00 36.5 C 117 H 17 103/64 97 Intake/Output (24 Hrs) 04/17/17 04/18/17 04/19/17 05:59 05:59 05:59 Intake Total 1450 757 500 Output Total 1350 1200 500 Balance 100 -443 0 Intake: Oral (ml) 1150 700 500 IV Infused (ml) 300 57 Immune Globulin 10 gm ( 100 See Protocol) IV .ONCE AFTER PREMEDS [facility] Rx#: [id number] Immune Globulin 20 gm ( 200 57 See Protocol) IV DAILY@ 1330 [facility] Rx#:[id number] Output: Urine (ml) 1350 1200 500 Catheter 1050 1200 500 Toilet 300 Other: Intake Quantity Yes Sufficient Output Comment Catheter STRAIGHT CATH Number of Voids Toilet 1 Bladder Scan Volume (ml) Catheter 940 350 Number of Emesis 1 1 Occurrences Result Diagrams: 04/17/17 05:15 04/18/17 06:20 - Physical Exam Constitutional: no apparent distress Eyes: anicteric sclera Cardiovascular: irregularly irregular Respiratory: clear to auscultate bilat Gastrointestinal: normoactive bowel sounds ICD10 Worksheet Patient Problems: Problems Problem Status Onset Anemia Acute Elevated liver enzymes Acute Hypochloremia Acute Hyponatremia Acute Myalgia Acute Rash Acute
[2017-04-18 22:03] LABS: MISCELLANEOUS TEST See Comments
[2017-04-18] MEDS: TRIAZOLAM 0.25 MG TAB PO SCH (22:54)
[2017-04-18 22:57] LABS: ENTEROVIRUS BY PCR Negative (Negative); MISCELLANEOUS TEST See Comments; SPECIMEN SOURCE ENTEROVIRUS CSF
[2017-04-19 04:43] LABS: ANION GAP 7 mEq/L (8-16); CALCIUM 8.8 mg/dL (8.5-10.4); CARBON DIOXIDE 24 mEq/l (22-31); CHLORIDE 95 mEq/L (97-110); CREATININE 0.7 mg/dL (0.7-1.3); GLOMERULAR FILTRATION RATE > 60; GLUCOSE 124 mg/dL (70-100); MAGNESIUM 2.2 mg/dL (1.6-2.3); SODIUM 126 mEq/L (134-144)
[2017-04-19] MEDS ORDERED: BENZOCAINE UNIT DOSE SPRAY HURRICAINE MM ONE (08:48)
[2017-04-19] MEDS ORDERED: MIDAZOLAM 2 MG/2 ML VIAL IVP ONE (08:48)
[2017-04-19] MEDS ORDERED: fentaNYL 100 MCG/2 ML INJ IVP ONE (08:48)
[2017-04-19] MEDS ORDERED: ETOMIDATE 20 MG/10 ML VIAL IVP ONE (08:48)
[2017-04-19] MEDS ORDERED: NS 500 ML IV ONE (08:48)
[2017-04-19] MEDS ORDERED: PROPOFOL 200 MG/20 ML VIAL IVP ONE (08:48)
[2017-04-19] MEDS ORDERED: ETOMIDATE 40 MG/20 ML INJ ONE (09:14)
--- NOTE | 2017-04-19 09:15 | CPEKG ---
Heart Rate: 104 RR Interval: 577 QRSD Interval: 112 QT Interval: 384 QTC Interval: 506 QRS [place]: 80 T Wave [place]: -65 EKG Severity - ABNORMAL ECG - EKG Impression: ATRIAL FIBRILLATION, V-RATE 79-150 EKG Impression: ABERRANT COMPLEX, POSSIBLY SUPRAVENTRICULAR EKG Impression: INCOMPLETE RIGHT BUNDLE BRANCH BLOCK Electronically Signed By: Chace Polanco 19-Apr-2017 16:53:20
--- NOTE | 2017-04-19 09:47 | PDINTPN ---
Clerical Office Progress Note Assessment/Plan: Assessment/plan: 61 M with chronic back pain admitted with fever, rash and progressive weakness and paresthesias. MRI of cervical, thoracic, and lumbar spine unremarkable but LP showed high protein and WBC 33 (mostly lymphs and macrophages). Also developed afib and cardiology following. 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 Unable to lay in bed due to severity of back pain. * GB (AIDP) - Improved ambulation. Appreciate neurology update. Tolerated IVIG last pm so no TPE necesssary. Cont PT/OT * Afib- going for NIKKI and cardioversion this AM. Remains asymptomatic. Objective: Vital Signs Temp Pulse Resp BP Pulse Ox 36.5 C 98 16 111/63 97 04/19/17 03:30 04/19/17 08:00 04/19/17 08:00 04/19/17 08:00 04/19/17 08:00 Microbiology 04/15/17 18:06 Gram Stain - Final Cerebral Spinal Fluid CSF Culture - Final Laboratory Results 04/17/17 05:15 04/19/17 03:21 04/18/17 04/19/17 04/20/17 05:59 05:59 05:59 Intake Total 757 1124 Output Total 1200 1300 Balance -443 -176 PT 14.3 SEC (12.0-15.0) 04/15/17 03:30 INR 1.12 (0.83-1.16) 04/15/17 03:30 Physical Exam - Physical Exam General Appearance: WD/WN, alert, no apparent distress EENT: PERRL/EOMI Neck: limited range of motion Respiratory: lungs clear, normal breath sounds, No respiratory distress Cardiac/Chest: regular rate, rhythm, No edema Abdomen: non-tender, soft, No distended Skin: normal color, warm/dry Lymphatic: no adenopathy Extremities: No pedal edema Neuro/Psych: alert, normal mood/affect, oriented x 3 ICD10 Worksheet Patient Problems: Problems Problem Status Onset Anemia Acute Elevated liver enzymes Acute Hypochloremia Acute Hyponatremia Acute Myalgia Acute Rash Acute
--- NOTE | 2017-04-19 10:11 | CPEKG ---
Heart Rate: 73 RR Interval: 822 P-R Interval: 164 QRSD Interval: 108 QT Interval: 412 QTC Interval: 454 P [place]: 75 QRS [place]: 83 T Wave [place]: -67 EKG Severity - ABNORMAL ECG - EKG Impression: SINUS RHYTHM EKG Impression: INCOMPLETE RIGHT BUNDLE BRANCH BLOCK Electronically Signed By: Chace Polanco 19-Apr-2017 16:53:10
[2017-04-19] MEDS: SODIUM CHLORIDE 1,000 MG TAB PO SCH ×3 (11:28→20:56)
[2017-04-19] MEDS: SENNOSIDES/DOCUSATE SODIUM TAB PO SCH ×2 (11:28→20:56)
[2017-04-19] MEDS: ENOXAPARIN 80 MG/0.8 ML SYR SC SCH ×2 (11:31→20:57)
[2017-04-19] MEDS: METOPROLOL TARTRATE 25 MG TAB PO SCH ×2 (11:32→20:56)
[2017-04-19] MEDS: GABAPENTIN 300 MG CAP PO SCH ×3 (11:32→20:56)
[2017-04-19] MEDS: PROMETHAZINE HCL 25 MG/ML INJ IVP PRN (11:50)
--- NOTE | 2017-04-19 14:04 | HOSPPROG ---
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 He is on IVIG and appears to be tolerating well at this point. Weakness and numbness are improving. Evaluation has included MRIs of his cervical, thoracic and lumbar spine all of which were fairly unremarkable. 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 Discussed in multi-disciplinary rounds. 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 * Continue close monitoring, add NIF daily as needed currently his respiratory status has been stable * Appreciate Neurology * Appreciate ID consult. # low back pain: Responding well to current medications however he is still unable to lay flat for long periods of time due to intractable back pain. Hopefully this will improve as we treat his Guillain-[place] syndrome. # urinary retention: Unclear if this is related to the Guillain-[place] syndrome , no obvious abnormalities on his MRI. Will place a Jaquez and follow. Consider a trial off it soon # constipation, patient on bowel protocol will try suppositories # Junctional rhythm: Patient verify junctional rhythm overnight. Asymptomatic. Currently in sinus rhythm will continue to monitor. # AFib with rapid ventricular response, patient asymptomatic. -S/P Cardioversion today, now in SR -cont Metoprolol BID -AC per Cards Disposition: Patient will likely remain in the hospital few more days depending on therapy for Guillain-[place] syndrome and his overall status and constellation of symptoms. Transferring out of the ICU today. Subjective: Had cardioversion today. Will transfer out of the ICU today. No CP or SOB. Still with numbness. Objective: Vital Signs Temp Pulse Resp BP Pulse Ox 36.4 C 81 12 115/74 98 04/19/17 11:26 04/19/17 11:26 04/19/17 11:26 04/19/17 11:26 04/19/17 11:26 Microbiology 04/15/17 18:06 Gram Stain - Final Cerebral Spinal Fluid CSF Culture - Final Laboratory Results 04/17/17 05:15 04/19/17 03:21 04/18/17 04/19/17 04/20/17 05:59 05:59 05:59 Intake Total 757 1124 Output Total 1200 1300 Balance -443 -176 PT 14.3 SEC (12.0-15.0) 04/15/17 03:30 INR 1.12 (0.83-1.16) 04/15/17 03:30 - Physical Exam Constitutional: no apparent distress, chronically ill appearing Eyes: PERRL, EOMI Ears, Nose, Mouth, Throat: moist mucous membranes Cardiovascular: regular rate and rhythym, No JVD Respiratory: no respiratory distress Gastrointestinal: normoactive bowel sounds, soft, non-tender abdomen Genitourinary: no bladder fullness Skin: warm, normal color Neurologic: AAOx3 Psychiatric: interacting appropriately, not anxious, not encephalopathic Lymph, Heme, Immunologic: no cervical LAD ICD10 Worksheet Patient Problems: Problems Problem Status Onset Anemia Acute Elevated liver enzymes Acute Hypochloremia Acute Hyponatremia Acute Myalgia Acute Rash Acute
--- NOTE | 2017-04-19 14:43 | NEUROPROG ---
Assessment: 1. Acute on chronic back pain 2. Ascending paresthesias, resolving 3. Abnormal CSF exam 4. Atrial fibrillation 5. Urinary retention 35 total minutes floor time; over 50% counseling regarding the patient's condition, testing and treatment plan. The patient tolerated his 4th dose of IVIG well without nausea. The nausea was related to opiate pain medication. This has been discontinued. He did receive conscious sedation with fentanyl this morning for electrical cardioversion, he had subsequent nausea from the medications I suspect. This will resolve. He has responded well to gabapentin 300 mg three times daily without side effects. He is not having "any back pain" now, fortunately The plan will be to give him his 5th dose of IVIG this evening, have him walk with physical therapy as tolerated, continue monitoring for autonomic disturbances such as dysrhythmia and resolving urinary retention. Once he is stable from the autonomic standpoint, we can plan on discharging him either to inpatient rehabilitation versus home. Whichever is indicated He has had no shortness of breath or dyspnea. Subjective: Nausea resolved off opiates Objective: Vital Signs Temp Pulse Resp BP Pulse Ox 36.4 C 81 12 115/74 98 04/19/17 11:26 04/19/17 11:26 04/19/17 11:26 04/19/17 11:26 04/19/17 11:26 Microbiology 04/15/17 18:06 Gram Stain - Final Cerebral Spinal Fluid CSF Culture - Final Laboratory Results 04/17/17 05:15 04/19/17 03:21 04/18/17 04/19/17 04/20/17 05:59 05:59 05:59 Intake Total 757 1124 200 Output Total 1200 1300 500 Balance -443 -176 -300 PT 14.3 SEC (12.0-15.0) 04/15/17 03:30 INR 1.12 (0.83-1.16) 04/15/17 03:30 Awake and alert Normal strength throughout Absent patellar reflexes bilaterally No bulbar abnormalities. No dyspnea Allergies/Adverse Reactions: No Known Allergies Allergy (Verified 04/11/17 11:08)
--- NOTE | 2017-04-19 16:51 | PCMIDPN ---
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 Clinically the patient appears to be doing slightly better. Encephalitis symptoms seem minimal. Odd paresthesias and weakness that is more predominantly upper extremity rather than lower extremity. Patient continues to complain of dizziness and coordination issues. Will obtain an MRI of his brain with contrast today. Have been in discussion with the [facility] officer from the viral special pathogens branch in [place] about sending samples for serology for tick-borne encephalitis given his recent travel to [place]. The remainder of the serologies are returning negative. Plan: 1. Continue to observe off antibiotics. 2. follow clinical course and follow up on laboratory data that is pending. 04/19/17 16:47 Subjective: Patient is sitting up in his hospital chair. He states that his biggest complaints or dizziness and poor coordination. He states that his strength is improving. No fevers or chills. Objective: No antibiotics Vital Signs Temp Pulse Resp BP Pulse Ox 36.9 C 72 15 129/76 H 98 04/19/17 15:00 04/19/17 15:00 04/19/17 15:00 04/19/17 15:00 04/19/17 15:00 Microbiology 04/15/17 18:06 Gram Stain - Final Cerebral Spinal Fluid CSF Culture - Final Laboratory Results 04/17/17 05:15 04/19/17 03:21 04/18/17 04/19/17 04/20/17 05:59 05:59 05:59 Intake Total 757 1124 200 Output Total 1200 1300 500 Balance -443 -176 -300 ESR 9 MM/HR (0-20) 04/14/17 07:00 - Physical Exam General Appearance: WD/WN, alert, no apparent distress, non-toxic Respiratory: lungs clear, normal breath sounds, No respiratory distress Cardiac/Chest: regular rate, rhythm, No tachycardia Skin: normal color, warm/dry, No rash Neuro/Psych: alert, normal mood/affect, oriented x 3, No no motor/sensory deficits ICD10 Worksheet Patient Problems: Problems Problem Status Onset Anemia Acute Elevated liver enzymes Acute Hypochloremia Acute Hyponatremia Acute Myalgia Acute Rash Acute
[2017-04-19] MEDS ORDERED: diphenhydrAMINE 50 MG CAP PO SCH (17:00)
[2017-04-19] MEDS ORDERED: ACETAMINOPHEN 325 MG TAB PO SCH (17:00)
[2017-04-19] MEDS ORDERED: GADOBUTROL 10 ML VIAL IVP ONE (17:06)
[2017-04-19] MEDS ORDERED: IMMUNE GLOBULIN 10 GM/100 ML VIAL IV SCH (17:30)
[2017-04-19] MEDS ORDERED: IMMUNE GLOBULIN 20 GM/200 ML VIAL IV SCH (17:30)
[2017-04-19 17:41] LABS: INTERPRETATION See Comments; WEST NILE VIRUS IGG Negative (Negative); WEST NILE VIRUS IGM Negative (Negative)
[2017-04-19 18:33] LABS: SPECIMEN SOURCE CSF; VARICELLA ZOSTER NEGATIVE (Negative)
[2017-04-19 19:27] LABS: POTASSIUM 3.6 mEq/L (3.5-5.2)
[2017-04-19] MEDS: TRIAZOLAM 0.25 MG TAB PO SCH (21:37)
[2017-04-19] MEDS ORDERED: POTASSIUM CL 10 MEQ TAB PO ONE (22:32)
[2017-04-20 05:25] LABS: MAGNESIUM 2.1 mg/dL (1.6-2.3); POTASSIUM 4.1 mEq/L (3.5-5.2)
[2017-04-20] MEDS: PROMETHAZINE HCL 25 MG/ML INJ IVP PRN (06:01)
[2017-04-20] MEDS: diphenhydrAMINE 50 MG CAP PO SCH (06:40)
[2017-04-20] MEDS: ACETAMINOPHEN 325 MG TAB PO SCH (06:40)
[2017-04-20] MEDS: IMMUNE GLOBULIN 10 GM/100 ML VIAL IV SCH (06:40)
[2017-04-20] MEDS: IMMUNE GLOBULIN 20 GM/200 ML VIAL IV SCH (06:41)
[2017-04-20] MEDS ORDERED: NS 500 ML IV ONE (09:37)
[2017-04-20] MEDS ORDERED: D5W NS W/ 20 KCl/L 1,000 ML IV SCH (09:45)
[2017-04-20] MEDS: SENNOSIDES/DOCUSATE SODIUM TAB PO SCH ×2 (10:00→21:11)
[2017-04-20] MEDS: ENOXAPARIN 80 MG/0.8 ML SYR SC SCH ×2 (10:00→21:17)
[2017-04-20] MEDS: GABAPENTIN 300 MG CAP PO SCH ×3 (10:00→21:13)
[2017-04-20] MEDS: SODIUM CHLORIDE 1,000 MG TAB PO SCH ×3 (10:00→17:30)
[2017-04-20] MEDS: METOPROLOL TARTRATE 25 MG TAB PO SCH ×2 (10:00→21:13)
--- NOTE | 2017-04-20 13:45 | HOSPPROG ---
Hospitalist Progress Note Assessment/Plan: First encounter with this patient 61-year-old healthy man is admitted with fever, rash and increasing back pain and diagnosed with likely Guillan-[place] Syndrome. He is on IVIG and appears to be tolerating well at this point. Weakness and numbness are improving. Evaluation has included MRIs of his cervical, thoracic and lumbar spine all of which were fairly unremarkable. Lumbar puncture is most consistent with Guillain-[place] syndrome. 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 * nausea and vomiting * was probably related to IVIG. Yesterday's worsening could be related to medications received during cardioversion. He apparently is very sensitive to narcotics * will start IV fluids and continue to monitor. Hopefully this will improve now that he has finished his IVIG and should not be receiving any further inciting medications * hyponatremia * due to low solute/ volume depletion/ and possible component of SIADH * will recheck urine studies today * he has been on salt tablets * I think he is dry and will give IV fluids # low back pain: Responding well to current medications however he is still unable to lay flat for long periods of time due to intractable back pain. Hopefully this will improve as we treat his Guillain-[place] syndrome. # urinary retention: Unclear if this is related to the Guillain-[place] syndrome , no obvious abnormalities on his MRI * continue Jaquez for now # constipation, patient on bowel protocol will try suppositories # AFib with rapid ventricular response, patient asymptomatic. * status post cardioversion * on metoprolol and anticoagulation Subjective: feeling dizzy. Paresthesias about the same. Has been nauseous and not eating for the last several days but worse last night. Had cardioversion yesterday Objective: Vital Signs Temp Pulse Resp BP Pulse Ox 37 C 65 15 125/79 H 100 04/20/17 11:51 04/20/17 11:51 04/20/17 11:51 04/20/17 11:51 04/20/17 11:51 Laboratory Results 04/17/17 05:15 04/20/17 04:18 04/19/17 04/20/17 04/21/17 05:59 05:59 05:59 Intake Total 1124 1350 Output Total 1300 1100 Balance -176 250 PT 14.3 SEC (12.0-15.0) 04/15/17 03:30 INR 1.12 (0.83-1.16) 04/15/17 03:30 tele personally viewed interpreted normal sinus rhythm - Time Spent With Patient Time Spent with Patient: greater than 35 minutes (discussing plan of care with patient) Time Spent with Patient: Greater than 35 minutes spent on this patients care, greater than 50% of time spent counseling, educating, and coordinating care regarding the above mentioned plan. - Physical Exam Constitutional: no apparent distress, appears nourished, not in pain Eyes: anicteric sclera, EOMI Ears, Nose, Mouth, Throat: moist mucous membranes, hearing normal, ears appear normal Cardiovascular: regular rate and rhythym, no murmur, rub, or gallop, edema ( 1+ pedal edema) Respiratory: no respiratory distress, no rales or rhonchi, clear to auscultation Gastrointestinal: normoactive bowel sounds, soft, non-tender abdomen, no palpable masses Skin: warm Neurologic: AAOx3 Psychiatric: interacting appropriately, not anxious, not encephalopathic, thought process linear ICD10 Worksheet Patient Problems: Problems Problem Status Onset Anemia Acute Elevated liver enzymes Acute Hypochloremia Acute Hyponatremia Acute Myalgia Acute Rash Acute
--- NOTE | 2017-04-20 15:41 | PCMIDPN ---
Assessment/Plan: Assessment/Plan: * Probable Guillain [place] Syndrome likely precipitated by viral illness: CSF with mild pleocytosis which is mixed lymphocytic/monocytic. Serologic studies for infectious etiologies all negative to date. Arboviral panel pending. Working to coordinate testing for tick-borne encephalitis with [facility] branch in [place]. Continue observation off antibiotics. Still favor viral infection as precipitant for current presentation. 04/20/17 15:38 Subjective: Patient feels about the same. Still complains of nausea. No change in numbness, tingling or back pain. Objective: Vital Signs Temp Pulse Resp BP Pulse Ox 37 C 65 15 125/79 H 100 04/20/17 11:51 04/20/17 11:51 04/20/17 11:51 04/20/17 11:51 04/20/17 11:51 Laboratory Results 04/17/17 05:15 04/20/17 04:18 04/19/17 04/20/17 04/21/17 05:59 05:59 05:59 Intake Total 1124 1350 Output Total 1300 1100 Balance -176 250 ESR 9 MM/HR (0-20) 04/14/17 07:00 No antibiotic therapy Lyme antibody negative CSF West Nile PCR /HSV/VZV negative Serum arboviral panel pending - Physical Exam General Appearance: alert, no apparent distress EENT: No scleral icterus, No conjunctival petechiae Respiratory: lungs clear, No respiratory distress Cardiac/Chest: regular rate, rhythm Abdomen: non-tender, No distended Skin: No rash ICD10 Worksheet Patient Problems: Problems Problem Status Onset Anemia Acute Elevated liver enzymes Acute Hypochloremia Acute Hyponatremia Acute Myalgia Acute Rash Acute
--- NOTE | 2017-04-20 16:04 | NEUROPROG ---
Assessment: 1. Acute on chronic back pain 2. Ascending paresthesias, resolving 3. Abnormal CSF exam 4. Episode of Atrial fibrillation, status post cardioversion, now resolved 5. Urinary retention 35 total minutes floor time; over 50% counseling regarding the patient's condition, testing and treatment plan. The patient has completed 5/5 IVIG. He did have some recurrent nausea. Back pain continues to be improved on gabapentin alone. He can continue 300 mg three times daily. He does have some patchy numbness on his trunk. All of this in aggregate is still consistent with Guillain-[place] syndrome perhaps triggered by a recent viral infection. I appreciate infectious disease's comprehensive and thorough approach to exclude any ongoing infection. Recommendations: 1. I highly recommend inpatient rehabilitation. He had full function prior to this illness, we hope and would like for him to return to full function. Patient is very motivated. 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 Inpatient rehabilitation will be the most efficient means for recovery. 2. We will continue to monitor his nausea and ensure he can take p.o. 3. We are continuing to monitor him on ECG telemetry for any recurrent dysrhythmia and monitoring his urinary retention He has had no shortness of breath or dyspnea. Subjective: Continuing to improve paresthesias Objective: Vital Signs Temp Pulse Resp BP Pulse Ox 37 C 65 15 125/79 H 100 04/20/17 11:51 04/20/17 11:51 04/20/17 11:51 04/20/17 11:51 04/20/17 11:51 Laboratory Results 04/17/17 05:15 04/20/17 04:18 04/19/17 04/20/17 04/21/17 05:59 05:59 05:59 Intake Total 1124 1350 Output Total 1300 1100 Balance -176 250 PT 14.3 SEC (12.0-15.0) 04/15/17 03:30 INR 1.12 (0.83-1.16) 04/15/17 03:30 No weakness Areflexic at the knees No shortness of breath Allergies/Adverse Reactions: No Known Allergies Allergy (Verified 04/11/17 11:08)
--- NOTE | 2017-04-20 16:16 | NEUROPROG ---
Assessment: 1. Acute on chronic back pain 2. Ascending paresthesias, resolving 3. Abnormal CSF exam 4. Episode of Atrial fibrillation, status post cardioversion, now resolved 5. Urinary retention ADDENDUM: The patient will follow up with Dr. Rafael Torres 4-6 weeks after discharging the home for reassessment and possible EMG/nerve conduction studies. Objective: Vital Signs Temp Pulse Resp BP Pulse Ox 36.7 C 62 14 131/78 H 99 04/20/17 16:00 04/20/17 16:00 04/20/17 16:00 04/20/17 16:00 04/20/17 16:00 Laboratory Results 04/17/17 05:15 04/20/17 04:18 04/19/17 04/20/17 04/21/17 05:59 05:59 05:59 Intake Total 1124 1350 Output Total 1300 1100 Balance -176 250 PT 14.3 SEC (12.0-15.0) 04/15/17 03:30 INR 1.12 (0.83-1.16) 04/15/17 03:30 Allergies/Adverse Reactions: No Known Allergies Allergy (Verified 04/11/17 11:08)
--- NOTE | 2017-04-20 16:27 | CPIP ---
[f rep st] INVASIVE CARDIAC PROCEDURE DATE OF PROCEDURE: 04/19/2017 PROCEDURE PERFORMED: Elective direct current cardioversion. INDICATIONS/APPROPRIATE USE CRITERIA: The patient is a 61-year-old man who presented with a Guillai n-[place] type syndrome to the hospital, initially with an accelerated junctional rhythm, and then rev erted to atrial fibrillation with rapid ventricular response that has now been present for 72 hours and is not improving with rate control. PROCEDURE IN DETAIL: After informed consent was obtained, n.p.o. status was confirmed, the patient underwent transesophageal echo, which was negative for a left atrial appendage thrombus. There was a lso no evidence of spontaneous echo contrast. Therefore, felt it was safe to proceed with an electiv e direct current cardioversion. The patient received 200 joules of biphasic shock, delivered with a patch to the anterior and posterior position with subsequent return of the rhythm to normal sinus at a rate of 65-72 beats per minute. IMPRESSION: Successful elective direct current cardioversion. Because of the patient's underlying G uillain-[place] syndrome, the negative thrombosis and structurally normal heart, I felt it would be re asonable for the patient to not be anticoagulated fully for the indication of cardioversion. I think this was an isolated event and will be unlikely to return in the near future. Copy requested to: Primary Care Physician /[id number]/MODL
--- NOTE | 2017-04-20 16:47 | GPROG ---
[f rep st] PROGRESS NOTE BRIEF INTERIM SUMMARY DATE OF SERVICE: 04/20/2017 DIAGNOSES: 1. Paroxysmal and sustained atrial fibrillation. 2. Suspected Guillain-[place] syndrome. For a detailed history of present illness, please see the dictated H and P. Briefly, I am seeing th e patient in followup, status post cardioversion yesterday. He is in a normal sinus rhythm today wi th normal pulse and blood pressure. Usually, we recommend full-dose anticoagulation for 30 days fol lowing a cardioversion, but given his clinical picture, the fact that the NIKKI yesterday showed no ev idence of a left atrial appendage thrombus, and the fact that his risk of an embolic stroke in the f irst 30 days following cardioversion would be less than 1% in this circumstance, I think the risk of full-dose anticoagulation, unless otherwise indicated in the next 30 days, would be greater than th e expected benefit in embolic event protection or risk reduction. We will plan for a 12-lead EKG in the morning, and if he remains in sinus rhythm, we will plan to si gn off his case at that time. Copy requested to: Primary Care Physician /[id number]/MODL
[2017-04-20] MEDS: TRIAZOLAM 0.25 MG TAB PO SCH (21:09)
[2017-04-21 04:56] LABS: % IMMATURE GRANULYOCYTES 0.6 % (0.0-1.1); ABSOLUTE IMMATURE GRANULOCYTES 0.03 10^3/uL (0.00-0.10); ADD DIFF? NO; ADD MORPH? NO; ADD SCAN? NO; ATYPICAL LYMPHOCYTE FLAG 10 (0-99); FRAGMENT RBC FLAG 0 (0-99); HEMATOCRIT 33.6 % (40.0-51.0); HEMOGLOBIN 11.9 g/dL (13.7-17.5); LEFT SHIFT FLG 0 (0-99); LIPEMIA HEMOLYSIS FLAG 90 (0-99); MEAN CELL HEMOGLOBIN 30.7 pg (27.9-34.1); MEAN CELL HEMOGLOBIN CONCENTR. 35.4 g/dL (32.4-36.7); MEAN CELL VOLUME 86.6 fL (81.5-99.8); MEAN PLATELET VOLUME 8.8 fL (8.7-11.7); PLATELET CLUMPS FLAG 0 (0-99); PLATELET COUNT 385 10^3/uL (150-400); RED BLOOD CELL COUNT 3.88 10^6/uL (4.40-6.38); RED CELL DISTRIBUTION WIDTH 13.7 % (11.5-15.2)
[2017-04-21 05:12] LABS: ANION GAP 11 mEq/L (8-16); CARBON DIOXIDE 22 mEq/l (22-31); CHLORIDE 98 mEq/L (97-110); CREATININE 0.6 mg/dL (0.7-1.3); GLOMERULAR FILTRATION RATE > 60; GLUCOSE 104 mg/dL (70-100); POTASSIUM 3.9 mEq/L (3.5-5.2); SODIUM 131 mEq/L (134-144)
[2017-04-21 05:13] LABS: ALANINE AMINOTRANSFERASE 143 IU/L (21-72); ALBUMIN 3.2 g/dL (3.5-5.0); ALKALINE PHOSPHATASE 109 IU/L (38-126); ASPARTATE AMINOTRANSFERASE 99 IU/L (17-59); CALCIUM 8.9 mg/dL (8.5-10.4)
[2017-04-21] MEDS: METOPROLOL TARTRATE 25 MG TAB PO SCH ×2 (08:09→21:30)
[2017-04-21] MEDS: GABAPENTIN 300 MG CAP PO SCH ×3 (08:09→21:29)
[2017-04-21] MEDS: ENOXAPARIN 80 MG/0.8 ML SYR SC SCH ×2 (08:10→21:32)
[2017-04-21] MEDS: SODIUM CHLORIDE 1,000 MG TAB PO SCH (08:10)
--- NOTE | 2017-04-21 09:37 | PCMIDPN ---
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 Clinically the patient appears to be doing slightly better. Encephalitis symptoms seem minimal. Odd paresthesias and weakness that is more predominantly upper extremity rather than lower extremity. 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 Will send labs off to the [facility] today for confirmation. Plan: 1. Continue to observe off antibiotics. 2. follow clinical course and follow up on laboratory data that is pending. 04/21/17 17:36 Subjective: Patient is sitting up in his chair in the hospital room. He denies any new complaint. Continues to have nausea which is relieved only by finger in. Notes that he is making slight improvements everyday neurologically. No fevers or chills. Objective: No antibiotics Vital Signs Temp Pulse Resp BP Pulse Ox 36.9 C 74 16 144/85 H 95 04/21/17 04:00 04/21/17 08:00 04/21/17 08:00 04/21/17 08:00 04/21/17 08:00 Laboratory Results 04/21/17 04:23 04/21/17 04:23 04/20/17 04/21/17 04/22/17 05:59 05:59 05:59 Intake Total 1350 450 Output Total 1100 1750 Balance 250 -1300 ESR 9 MM/HR (0-20) 04/14/17 07:00 - Physical Exam General Appearance: WD/WN, alert, no apparent distress, non-toxic Respiratory: lungs clear, normal breath sounds, No respiratory distress Cardiac/Chest: regular rate, rhythm, No tachycardia Skin: normal color, warm/dry, No rash Neuro/Psych: alert, normal mood/affect, oriented x 3, motor weakness, sensory deficit ICD10 Worksheet Patient Problems: Problems Problem Status Onset Anemia Acute Elevated liver enzymes Acute Hypochloremia Acute Hyponatremia Acute Myalgia Acute Rash Acute
[2017-04-21] MEDS: SENNOSIDES/DOCUSATE SODIUM TAB PO SCH ×2 (10:09→21:32)
--- NOTE | 2017-04-21 11:05 | CPEKG ---
Heart Rate: 63 RR Interval: 952 P-R Interval: 160 QRSD Interval: 112 QT Interval: 448 QTC Interval: 459 P [place]: 54 QRS [place]: 72 T Wave [place]: -14 EKG Severity - ABNORMAL ECG - EKG Impression: SINUS RHYTHM EKG Impression: INCOMPLETE RIGHT BUNDLE BRANCH BLOCK Electronically Signed By: Chace Polanco 21-Apr-2017 16:54:45
--- NOTE | 2017-04-21 15:31 | HOSPPROG ---
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 He is on IVIG and appears to be tolerating well at this point. Weakness and numbness are improving. Evaluation has included MRIs of his cervical, thoracic and lumbar spine all of which were fairly unremarkable. 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 * nausea and vomiting * was probably related to IVIG and other medications * Hopefully will turn the corner today * hyponatremia * due to low solute/ volume depletion * Better with IV fluids # low back pain: Responding well to current medications however he is still unable to lay flat for long periods of time due to intractable back pain. Hopefully this will improve as we treat his Guillain-[place] syndrome. # urinary retention: Unclear if this is related to the Guillain-[place] syndrome , no obvious abnormalities on his MRI * Will DC Jaquez tomorrow morning # constipation, patient on bowel protocol will try suppositories # AFib with rapid ventricular response, patient asymptomatic. * status post cardioversion * on metoprolol * Stop anticoagulation per cardiology's recommendation Subjective: Was feeling better yesterday but this morning had nausea and vomiting. Tingling about the same Objective: Vital Signs Temp Pulse Resp BP Pulse Ox 37 C 60 12 131/81 H 97 04/21/17 11:30 04/21/17 11:30 04/21/17 11:30 04/21/17 11:30 04/21/17 11:30 Laboratory Results 04/21/17 04:23 04/21/17 04:23 04/20/17 04/21/17 04/22/17 05:59 05:59 05:59 Intake Total 1350 450 Output Total 1100 1750 Balance 250 -1300 PT 14.3 SEC (12.0-15.0) 04/15/17 03:30 INR 1.12 (0.83-1.16) 04/15/17 03:30 Discussed with Neurology - Physical Exam Constitutional: no apparent distress, appears nourished, not in pain Eyes: anicteric sclera, EOMI Ears, Nose, Mouth, Throat: moist mucous membranes, hearing normal, ears appear normal Cardiovascular: regular rate and rhythym, no murmur, rub, or gallop, edema (1+ pedal) Respiratory: no respiratory distress, no rales or rhonchi, clear to auscultation Gastrointestinal: normoactive bowel sounds, soft, non-tender abdomen, no palpable masses Skin: warm Neurologic: AAOx3 Psychiatric: interacting appropriately, not anxious, not encephalopathic, thought process linear ICD10 Worksheet Patient Problems: Problems Problem Status Onset Anemia Acute Elevated liver enzymes Acute Hypochloremia Acute Hyponatremia Acute Myalgia Acute Rash Acute
--- NOTE | 2017-04-21 16:46 | NEUROPROG ---
Assessment: 1. Acute on chronic back pain 2. Ascending paresthesias, resolving 3. Abnormal CSF exam 4. Episode of Atrial fibrillation, status post cardioversion, now resolved 5. Urinary retention 35 total minutes floor time; over 50% counseling regarding the patient's interval lab results, other specialty documentation and direct [id number] time. The patient continues to improve every day in terms of his paresthesias resolving. His main physical symptom is acute on chronic low back pain. However , he is able to ambulate. He has no further atrial fibrillation after cardioversion. I appreciate cardiology's help. He is appetite has improved and nausea has decreased. He was able to eat in keep down food today. He has had no shortness of breath or dyspnea at all. No problems swallowing or bulbar weakness. Recommendations: 1. Follow up with Dr. Rafael Torres 4-6 weeks after discharging the home for reassessment and possible EMG/nerve conduction studies. 2. follow-up with infectious diseases outpatient to review outstanding ID labs 3. The patient will have home therapies No further recommendations now. He has completed 5 days of IVIG for presumed Guillain-[place] syndrome. We will continue to follow this very pleasant patient p.r.n. Please do not hesitate to call with any questions or changes in neurologic status. Subjective: Improving Objective: Vital Signs Temp Pulse Resp BP Pulse Ox 37 C 60 12 131/81 H 97 04/21/17 11:30 04/21/17 11:30 04/21/17 11:30 04/21/17 11:30 04/21/17 11:30 Laboratory Results 04/21/17 04:23 04/21/17 04:23 04/20/17 04/21/17 04/22/17 05:59 05:59 05:59 Intake Total 1350 450 Output Total 1100 1750 Balance 250 -1300 PT 14.3 SEC (12.0-15.0) 04/15/17 03:30 INR 1.12 (0.83-1.16) 04/15/17 03:30 Awake and alert No dyspnea or shortness of air Allergies/Adverse Reactions: No Known Allergies Allergy (Verified 04/11/17 11:08)
[2017-04-21] MEDS: TRIAZOLAM 0.25 MG TAB PO SCH (21:30)
[2017-04-21] MEDS: PROMETHAZINE HCL 25 MG/ML INJ IVP PRN (23:18)
[2017-04-22 04:25] LABS: % IMMATURE GRANULYOCYTES 0.2 % (0.0-1.1); ABSOLUTE IMMATURE GRANULOCYTES 0.01 10^3/uL (0.00-0.10); ADD DIFF? NO; ADD MORPH? NO; ADD SCAN? NO; ATYPICAL LYMPHOCYTE FLAG 40 (0-99); FRAGMENT RBC FLAG 0 (0-99); HEMATOCRIT 34.4 % (40.0-51.0); LEFT SHIFT FLG 0 (0-99); LIPEMIA HEMOLYSIS FLAG 90 (0-99); MEAN CELL HEMOGLOBIN 30.7 pg (27.9-34.1); MEAN CELL HEMOGLOBIN CONCENTR. 34.9 g/dL (32.4-36.7); MEAN PLATELET VOLUME 8.5 fL (8.7-11.7); PLATELET CLUMPS FLAG 10 (0-99); PLATELET COUNT 411 10^3/uL (150-400); RED BLOOD CELL COUNT 3.91 10^6/uL (4.40-6.38); RED CELL DISTRIBUTION WIDTH 13.4 % (11.5-15.2)
[2017-04-22 04:39] LABS: ANION GAP 9 mEq/L (8-16); CALCIUM 8.9 mg/dL (8.5-10.4); CARBON DIOXIDE 23 mEq/l (22-31); CHLORIDE 100 mEq/L (97-110); CREATININE 0.5 mg/dL (0.7-1.3); GLOMERULAR FILTRATION RATE > 60; GLUCOSE 106 mg/dL (70-100); SODIUM 132 mEq/L (134-144)
[2017-04-22 07:18] VITALS: TEMP 98.1; O2SAT 95
[2017-04-22] MEDS: GABAPENTIN 300 MG CAP PO SCH (09:38)
[2017-04-22] MEDS: METOPROLOL TARTRATE 25 MG TAB PO SCH (09:38)
[2017-04-22] MEDS: SENNOSIDES/DOCUSATE SODIUM TAB PO SCH (09:38)
[2017-04-22] MEDS: ENOXAPARIN 80 MG/0.8 ML SYR SC SCH (09:40)
[2017-04-22 11:52] VITALS: BP 147/80; PULSE 62; RESP 14
[2017-04-22] MEDS ORDERED: METOCLOPRAMIDE 10 MG/2 ML VIAL IVP SCH (12:00)
[2017-04-22] MEDS ORDERED: METOCLOPRAMIDE 10 MG TAB PO SCH (14:00)
--- NOTE | 2017-04-22 15:08 | PDIAF ---
- Diagnosis Diagnosis: Guillain-[place] Code Status: Full Code - Medication Management Discharge Medications: Medications to Continue on Transfer Ondansetron Odt [Zofran Odt 4 mg (*)] 4 mg PO Q4PRN #10 tab 04/11/17 [Last Taken 04/12/17] Triazolam [Halcion 0.25MG (*)] 0.25 mg PO HS #5 tab 04/11/17 [Last Taken ] oxyCODONE/APAP 5/325 [Percocet 5/325 (*)] 1 - 2 tab PO Q4-6PRN PRN #11 tab 04/11 [Last Taken 04/12/17] Metoclopramide [Reglan 10 mg tab (*)] 10 mg PO ACHS PRN #30 tab 04/22/17 [Last Taken Unknown] Metoprolol Tartrate [Lopressor 25 mg (*)] 25 mg PO BID #60 tab 04/22/17 [Last Taken Unknown] Ondansetron Odt [Zofran Odt 4 mg (*)] 4 mg PO Q4 PRN #30 tab 04/22/17 [Last Taken Unknown] Discharge Medications: Refer to the Discharge Home Medication list for PRN reason. - Orders Services needed: Home Care, Physical Therapy, Occupational Therapy Home Care Face to Face: I certify that this patient was under my care and that I had the required [id number] encounter meeting the encounter requirements on the discharge day. My findings support the fact that the patient is homebound as defined in CMS Chapter 7 Medicare Benefits Manual 30.1.1, The condition of the patient is such that there exists a normal inability to leave home and consequently, leaving home would require a considerable and taxing effort. - Follow Up Care Current Providers and Referrals: JORY BALLESTEROS [Other] - As per Instructions Alan Blas MD [Medical Doctor] - Vladimir Navarro MD [Medical Doctor] -
--- NOTE | 2017-04-22 16:19 | GDS ---
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 3. Atrial fibrillation with rapid ventricular response with periodic bouts of junctional rhythm. 4. Elevated liver function tests. HISTORY: This is a 61-year-old male who went to [place], backpacking at times, about a month ago and presented with paresthesia and worsening back pain. CONSULTATIONS: 1. Neurology. 2. Infectious Disease. 3. Cardiology. PROCEDURES: 1. Multiple MRIs, which did not show any pathology. 2. LP, which did show elevated protein and low glucose, and lymphocytic predominant pleocytosis. 3. Cardioversion. HOSPITAL COURSE: 1. Guillain-Colon: This was diagnosed through abnormalities with CSF with a normal MRI. He was gi shameka 5 days of IVIG. This was complicated with persistent nausea and vomiting, which was thought to be due to his IVIG. The nausea and vomiting are improving slowly after he finished his course. He has had paresthesias, but not significant weakness. He will go home with home physical therapy. 2. 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 He will follow up with Infectious Disease to get a final diagnosis. 3. Atrial fibrillation with rapid ventricular response and bouts of junctional rhythm: Cardiology was consulted. He was started on a beta neda and anticoagulation. He was eventually cardioverte d, and has not had any further problems. It is the opinion of Cardiology that since his CHADS score is 0, and that this was due to his acute illness, and that his NIKKI was negative, that a month of an ticoagulation was probably more risky than beneficial, and his anticoagulation was stopped on discha rge. DISPOSITION: Home. DISCHARGE MEDICATIONS: Reglan and Phenergan, as well as metoprolol 25 mg b.i.d. FOLLOWUP INSTRUCTIONS: He is instructed to follow up with Neurology and Infectious Disease. TIME SPENT: Greater than 30 minutes was spent on discharge. /[id number]/MODL
== END 2017-04-22 15:16 | disposition home health service (06) | DRG 94 ==
LOC: F2N 11:19 → OBSVTOIN 13:31 → F3N 04-19 14:48
PROVIDERS: ADMIT Internal Medicine; ATTEND Internal Medicine
PROC: 009U3ZX Drainage of Spinal Canal, Percutaneous Approach, Diagnostic (ICD-10-PCS; principal; 2017-04-15)
PROC: 30233S1 Transfusion of Nonautologous Globulin into Peripheral Vein, Percutaneous Approach (ICD-10-PCS; 2017-04-15)
PROC: B246ZZ4 Ultrasonography of Right and Left Heart, Transesophageal (ICD-10-PCS; 2017-04-19)
PROC: 5A2204Z Restoration of Cardiac Rhythm, Single (ICD-10-PCS; 2017-04-19)
DX: G61.0 Guillain-Barre syndrome (principal); A84.9 Tick-borne viral encephalitis, unspecified; E87.1 Hypo-osmolality and hyponatremia; R33.9 Retention of urine, unspecified; I48.0 Paroxysmal atrial fibrillation; R94.5 Abnormal results of liver function studies
CPT/HCPCS: 86618-90; 86644-90; 86645-90; 86651-90; 86652-90; 86653-90; 86654-90; 86664-90; 86665-90; 87798-90; 96374; 97112-GP; 97116-GP; 97162-GP; 97166-GO; 97530-GO; 97530-GP; 97535-GO; A9585; G0480; J1170; J1459; J1650; J1885; J2060; J2250; J2405; J2550; J2765; J3010

== ENCOUNTER → 2019-03-27 | Outpatient (CLI) | payer OTHER ==
[~2019-03-27] MED LIST: IOPAMIDOL (ISOVUE-300) 100 ML BTL ONE
== END ==
LOC: FIMAGING 15:35
PROVIDERS: ATTEND Otolaryngology
DX: R22.1 Localized swelling, mass and lump, neck (principal)
CPT/HCPCS: Q9967

== ENCOUNTER → 2019-04-16 | Outpatient (CLI) | payer OTHER | LOC: FIMAGING 14:27 ==

== ENCOUNTER → 2019-04-25 | Outpatient (CLI) | payer OTHER | LOC: FIMAGING 14:24 ==